=== PATIENT | male | born 1985 | race Two or more races ===

== ENCOUNTER 2017-03-27 06:48 | Emergency (ER) | payer OTHER ==
[2017-03-27 07:23] VITALS: BP 141/88; PULSE 62; TEMP 97.8; BMI 33.6
[2017-03-27] MEDS ORDERED: KETOROLAC TROMETHAMINE 60 MG/2 ML VIAL IM ONE (07:57)
--- NOTE | 2017-03-27 08:05 | PDOC ---
History of Present Illness - General Chief Complaint: Pain Stated Complaint: RT LEG INJURY Time Seen by Provider: 03/27/17 07:20 History Source: Patient Exam Limitations: No Limitations - History of Present Illness Initial Comments: 03/27/17 08:10 31-year-old male presents to the emergency room with complaints of right hernandez pain. Patient states a week ago was playing basketball when another individual' s knee burning collided into his hernandez causing him discomfort but states aching pain improved over time and then 2 days ago went back to spin class and yesterday walked hills for exercise. Pt states today pain was severe to the mid right hernandez. Patient denies radiation of pain, sensory changes distally, or previous injury to the affected area. Patient also denies calf pain. Timing/Duration: 1 week Severity: mild Associated Symptoms: reports: denies symptoms Past History - Travel Traveled outside of the country in the last 30 days: No Close contact w/someone who was outside of country & ill: No - Past Medical History Allergies/Adverse Reactions: Allergies Allergy/AdvReac Type Severity Reaction Status Date / Time No Known Allergies Allergy Verified 03/28/17 13:55 Home Medications: Ambulatory Orders NK [No Known Home Medication] 03/27/17 Asthma: Yes - Surgical History Abdominal Surgery: Yes Appendectomy: Yes - Suicide/Smoking/Psychosocial Hx Smoking History: Current every day smoker Number of Cigarettes Smoked Daily: 5 Information on smoking cessation initiated: No Hx Alcohol Use: No Drug/Substance Use Hx: No Patient Lives Alone: No Lives with/in: spouse/SO Review of Systems - Review of Systems Able to Perform ROS?: Yes Constitutional: No: Symptoms Reported HEENTM: No: Symptoms Reported Respiratory: No: Symptoms reported Cardiac (ROS): No: Symptoms Reported ABD/GI: No: Symptoms Reported : No: Symptoms Reported Musculoskeletal: Yes: Other (middle of right hernandez) Integumentary: No: Symptoms Reported Neurological: No: Symptoms reported Hematologic/Lymphatic: No: Symptoms Reported *Physical Exam - Vital Signs Last Vital Signs Temp Pulse Resp BP Pulse Ox 97.8 F 62 18 141/88 99 03/27/17 07:15 03/27/17 07:15 03/27/17 07:15 03/27/17 07:15 03/27/17 07:15 - Physical Exam General Appearance: Yes: Nourished, Appropriately Dressed. No: Apparent Distress Vascular Pulses: Dorsalis-Pedis (R): 2+ Extremity: positive: Normal Capillary Refill, Normal Inspection, Normal Range of Motion, Tender (over the anterior aspect of right mid tibia. No deformity, no increased warmth or discoloration noted). negative: Pedal Edema, Calf Tenderness Integumentary: positive: Normal Color, Warm, Moist Neurologic: positive: Motor Strength 5/5 (ambulatory with limp) ED Treatment Course - RADIOLOGY Radiology Studies Ordered: Category Date Time Status LEG TIB/FIB-RIGHT [RAD] Stat Radiology 03/27/17 07:23 Completed Medical Decision Making - Medical Decision Making 03/27/17 08:25 Patient with injury to his right lower leg 1 week ago but was performing strenuous activities for the past 2 days now with complaints of discomfort again. Patient on exam had anterior mid tibia discomfort but no acute findings other than discomfort. Patient was ordered for an x-ray to rule out fracture or bony abnormality. X-ray negative for acute findings. Patient ordered for 1 dose of Toradol IM. Patient discharged home with supportive care structures. *DC/Admit/Observation/Transfer Diagnosis at time of Disposition: Contusion of right leg Qualifiers: Encounter type: initial encounter Qualified Code(s): S80.11XA - Contusion of right lower leg, initial encounter - Discharge Dispostion Disposition: HOME Condition at time of disposition: Good - Referrals Referrals: Elmer Barragan MD [Primary Care Provider] - - Patient Instructions Printed Discharge Instructions: DI for Contusion Additional Instructions: Please apply heat to the affected area and gently massage to reduce the contusion. May take Motrin for discomfort. Avoid movements that triggered discomfort. If symptoms worsen please call to the emergency room. otherwise follow-up with your primary care physician.
[2017-03-27] MEDS ORDERED: KETOROLAC TROMETHAMINE 60 MG/2 ML VIAL ONE (08:11)
== END 2017-03-27 08:30 | disposition home or self-care (01) ==
LOC: JER 06:48
PROC: 3E0233Z Introduction of Anti-inflammatory into Muscle, Percutaneous Approach (ICD-10-PCS; principal; 2017-03-27)
DX: S80.11XA Contusion of right lower leg, initial encounter (principal); W50.0XXA Accidental hit or strike by another person, initial encounter; Y93.67 Activity, basketball; Y92.310 Basketball court as the place of occurrence of the external cause; Y99.8 Other external cause status
CPT/HCPCS: 73590-TC-RT; 96372; 99282-25

== ENCOUNTER 2017-03-28 13:43 | Inpatient (IN) | payer OTHER ==
[2017-03-28 13:55] VITALS: BMI 33.6
[2017-03-28] MEDS ORDERED: KETOROLAC TROMETHAMINE 30 MG/1 ML VIAL IVPUSH ONE (15:14)
[2017-03-28] MEDS ORDERED: KETOROLAC TROMETHAMINE 60 MG/2 ML VIAL ONE (15:18)
[2017-03-28] MEDS ORDERED: SODIUM CHLORIDE 1,000 ML IV STA (15:50)
[2017-03-28 15:53] LABS: BASOPHIL 0.3 % (0-2.0); EOSINOPHIL 0.4 % (0-4.5); MCH 28.6 pg (25.7-33.7); MCHC 33.9 g/dl (32.0-35.9); MEAN CELL VOLUME 84.3 fl (80-96); MEAN PLT VOLUME 9.5 fl (7.5-11.1); NEUTROPHILS 83.7 % (42.8-82.8); PLATELET COUNT 221 K/MM3 (134-434); RDW 13.5 % (11.9-15.9); WHITE BLOOD COUNT 17.8 K/mm3 (4.0-10.0)
--- NOTE | 2017-03-28 16:02 | PDOC ---
History of Present Illness <Michael Phelan - Last Filed: 03/28/17 17:28> - History of Present Illness Initial Comments: 03/28/17 15:59 "The patient is a 31 year old male, with a significant past medical history of asthma, who presents to the emergency department complaining of right hernandez pain , swelling and erythema x 1 day. The patient states he was playing basketball 1 week ago, when another individuals knee bumped into his right hernandez. Patient states he was down for 30 minutes in pain, but was able to get up afterwards and ambulate. Patient states his pain initially improved. However, 3 days ago he reports doing a lot of walking, estimating being on his feet for 12 hours. Since then patient reports increased pain to the right hernandez. Pt presented to the ED yesterdayand had an XR done which revealed no fracture. Since then patient reports he has been taking Motrin for the pain with minimum relief. He reports that since yesterday, his hernandez has become redder and more painful. Patient describes his hernandez pain as a hot needle stabbing his hernandez. He reports difficulty ambulating secondary to pain, and states he has been using crutches. Denies any chest pain, shortness of breath, diaphoresis, or palpitations. He denies any fever, chills, headache, or dizziness. He denies any nausea or vomiting. He denies any dysuria, hematuria, frequency, or urgency. He denies any recent travel. Allergies: NKDA Past Surgical History: None reported Social History: Non smoker. No ETOH or recreational drug use. " <Christophe Pfeiffer - Last Filed: 03/28/17 17:47> - General Chief Complaint: Redness To Affected Area Stated Complaint: REVISIT Time Seen by Provider: 03/28/17 14:26 Past History <Michael Phelan - Last Filed: 03/28/17 17:28> - Past Medical History Asthma: Yes - Surgical History Abdominal Surgery: Yes Appendectomy: Yes - Suicide/Smoking/Psychosocial Hx Smoking History: Current every day smoker Number of Cigarettes Smoked Daily: 7 Information on smoking cessation initiated: No Hx Alcohol Use: No Drug/Substance Use Hx: No Substance Use Type: None <Christophe Pfeiffer - Last Filed: 03/28/17 17:47> - Past Medical History Allergies/Adverse Reactions: Allergies Allergy/AdvReac Type Severity Reaction Status Date / Time No Known Allergies Allergy Verified 03/28/17 13:55 Home Medications: Ambulatory Orders NK [No Known Home Medication] 03/27/17 Review of Systems - Review of Systems Comments:: 03/28/17 16:01 "GENERAL/CONSTITUTIONAL: No fever or chills. No weakness. HEAD, EYES, EARS, NOSE AND THROAT: No change in vision. No ear pain or discharge. No sore throat. CARDIOVASCULAR: No chest pain or shortness of breath. RESPIRATORY: No cough, wheezing, or hemoptysis. GASTROINTESTINAL: No nausea, vomiting, diarrhea or constipation. GENITOURINARY: No dysuria, frequency, or change in urination. MUSCULOSKELETAL: Yes right foot/ankle swelling, Yes right hernandez pain, swelling, and erythema. He denies any neck or back pain. SKIN: Yes right hernandez erythema and swelling. NEUROLOGIC: No headache, vertigo, loss of consciousness, or change in strength/ sensation. ENDOCRINE: No increased thirst. No abnormal weight change. HEMATOLOGIC/LYMPHATIC: No anemia, easy bleeding, or history of blood clots. ALLERGIC/IMMUNOLOGIC: No hives." <Christophe Pfeiffer - Last Filed: 03/28/17 17:47> *Physical Exam - Vital Signs Last Vital Signs Temp Pulse Resp BP Pulse Ox 98.3 F 87 20 138/68 98 03/28/17 13:49 03/28/17 13:49 03/28/17 13:49 03/28/17 13:49 03/28/17 13:49 <Phelan,Giomilsy - Last Filed: 03/28/17 17:28> - Vital Signs Last Vital Signs Temp Pulse Resp BP Pulse Ox 98.3 F 87 20 138/68 98 03/28/17 13:49 03/28/17 13:49 03/28/17 13:49 03/28/17 13:49 03/28/17 13:49 - Physical Exam Comments: 03/28/17 16:02 "GENERAL: Awake, alert, and fully oriented, in no acute distress HEAD: No signs of trauma EYES: PERRLA, EOMI, sclera anicteric, conjunctiva clear ENT: Auricles normal inspection, hearing grossly normal, nares patent, oropharynx clear without exudates. Moist mucosa NECK: Nontender, no stepoffs, Normal ROM, supple, no lymphadenopathy, JVD, or masses LUNGS: Breath sounds equal, clear to auscultation bilaterally. No wheezes, and no crackles HEART: Regular rate and rhythm, normal S1 and S2, no murmurs, rubs or gallops ABDOMEN: Soft, nontender, normoactive bowel sounds. No guarding, no rebound. No masses EXTREMITIES: R hernandez with erythema extending from ankle to knee, tender to palpation anterior lower leg, compartments soft, no ulcers/abrasions, distal pulses intact, sensation intact, mild R ankle effusion with no tenderness, normal range of motion NEUROLOGICAL: Cranial nerves II through XII intact. 5/5 strength and sensation in all extremities, Normal speech, normal gait SKIN: Warm, Dry, normal turgor, no rashes or lesions noted. " <Christophe Pfeiffer - Last Filed: 03/28/17 17:47> ED Treatment Course - LABORATORY CBC & Chemistry Diagram: 03/28/17 15:30 03/28/17 15:30 - ADDITIONAL ORDERS Additional order review: Laboratory Results 03/28/17 03/28/17 03/28/17 17:00 15:30 15:30 Sodium 139 Potassium 4.2 Chloride 105 Carbon Dioxide 28 Anion Gap 6 L BUN 20 H Creatinine 1.0 Creat Clearance w eGFR > 60 Random Glucose 99 Calcium 8.4 L Total Bilirubin 1.1 H AST 10 L ALT 24 Alkaline Phosphatase 67 Creatine Kinase 123 Cancelled C-Reactive Protein 14.6 H Total Protein 7.1 Albumin 3.8 Urine Color Carolann Urine Appearance Clear Urine pH 6.0 Urine Protein 1+ H Urine Glucose (UA) Negative Urine Ketones Negative Urine Blood Negative Urine Nitrite Negative Urine Bilirubin Negative Urine Urobilinogen 4.0 e.u/dl 03/28/17 15:30 RBC 5.31 MCV 84.3 MCHC 33.9 RDW 13.5 MPV 9.5 Neutrophils % 83.7 H Lymphocytes % 8.4 Monocytes % 7.2 Eosinophils % 0.4 Basophils % 0.3 - RADIOLOGY Radiograph Interpretation: 03/28/17 17:20 EXAM: Right lower extremity venous ultrasound. INTERPRETED BY: Dr. Ellis REVIEWED BY: Dr. Pfeiffer IMPRESSION: There is no sonographic evidence of deep vein thrombosis. The greater saphenous vein appears patent. The smaller superficial veins demonstrate no obvious thrombosis. If there is clinical concern for possible isolated deep calf vein thrombosis or if there is a clinical diagnosis of uncomplicated superficial thrombophlebitis, then correlation with follow up sonography is suggested in approximately 3-7 days. Within the upper and middle thirds of the right calf medially note is made of a nonspecific complex approximately 10 x 1.7 cm fluid collection with internal debris. There is no associated increased vascularity on Doppler imaging. Impression: No DVT is identified involving the right leg. Please see above. A nonspecific complex 10 x 1.7 cm fluid collection is noted within the upper and middle thirds right calf medial soft tissues medially - ? hematoma, dissecting popliteal cyst with internal debris , hemorrhagic dissecting popliteal cyst, versus partially treated abscess and less likely representing a neoplastic lesion. Correlate clinically and with close follow-up imaging. - Medications Given in the ED: ED Medications Discontinued Medications Generic Name Dose Route Start Last Admin Trade Name Freq PRN Reason Stop Dose Admin Sodium Chloride 1,000 mls @ 1,000 mls/hr 03/28/17 15:50 03/28/17 15:19 Normal Saline - IV 03/28/17 16:49 1,000 mls/hr ASDIR STA Administration Ketorolac Tromethamine 15 mg 03/28/17 15:14 03/28/17 15:19 Toradol Injection - IVPUSH 03/28/17 15:15 15 mg ONCE ONE Administration <Michael Phelan - Last Filed: 03/28/17 17:28> - LABORATORY CBC & Chemistry Diagram: 03/28/17 15:30 03/28/17 15:30 - ADDITIONAL ORDERS Additional order review: Laboratory Results 03/28/17 15:30 Creatine Kinase Cancelled 03/28/17 15:30 RBC 5.31 MCV 84.3 MCHC 33.9 RDW 13.5 MPV 9.5 Neutrophils % 83.7 H Lymphocytes % 8.4 Monocytes % 7.2 Eosinophils % 0.4 Basophils % 0.3 - RADIOLOGY Radiology Studies Ordered: Category Date Time Status DUPLEX VASCUL US-1 LEG [US] Stat Ultrasound 03/28/17 15:16 Ordered <Christophe Pfeiffer - Last Filed: 03/28/17 17:47> Medical Decision Making - Medical Decision Making 03/28/17 17:25 First call placed to Dr. Longoria at 17:23. Awaiting call back. Case discussed with Dr. Longoria at 17:27. <Michael Phelan - Last Filed: 03/28/17 17:28> - Medical Decision Making 03/28/17 16:08 31 M with R hernandez redness, swelling, pain. Exam consistent with cellulitis. However, given recent strenuous activity, will r/o rhabdomyolosis as well. Compartments are soft on exam, with normal neurovascular exam. Pt with no signs of systemic infection. - Labs - IVF - US to r/o DVT 03/28/17 17:39 Labs notable for elevated WBC and CRP. Pt given bactrim and keflex for cellulitis. US of RLE negative for DVT but shows fluid collection - possible hematoma vs dissecting rodríguez's cyst vs abscess. I spoke with Dr. Longoria, orthopedist gauge controller, who reviewed case and studies with me. Given pt's rapid progression of erythema and elevated WBC, he recommends admission to hospital for IV abx and ortho evaluation in AM. Pt started on IV vancomycin. Area of erythema on RLE demarcated using skin marker. Will admit to hospitalist for IV abx and re-evaluation. 03/28/17 17:46 Case discussed in detail with admitting physician including history, physical exam and ancillary studies. Admitting physician has assumed care for the patient and will follow all pending diagnostics and complete the evaluation and treatment. <Christophe Pfeiffer - Last Filed: 03/28/17 17:47> *DC/Admit/Observation/Transfer - Attestations Scribe Attestion: 03/28/17 17:25 Documentation prepared by Michael Phelan, acting as medical office rep for Christophe Pfeiffer MD. <Michael Phelan - Last Filed: 03/28/17 17:28> - Discharge Dispostion Admit: Yes - Attestations Physician Attestion: 03/28/17 17:47 I, Dr. Christophe Pfeiffer MD, attest that this document has been prepared under my direction and personally reviewed by me in its entirety. I further attest, that it accurately reflects all work, treatment, procedures and medical decision -making performed by me. <Christophe Pfeiffer - Last Filed: 03/28/17 17:47> Diagnosis at time of Disposition: Cellulitis
[2017-03-28] MEDS ORDERED: SULFAMETHOXAZOLE/TRIMETHOPRIM 800MG/160MG D.S. TABLET PO ONE (16:12)
[2017-03-28 16:17] LABS: ALBUMIN 3.8 g/dl (3.4-5.0); ALK PHOS 67 U/L (45-117); ANION GAP 6 (8-16); BILIRUBIN,TOTAL 1.1 mg/dL (0.2-1.0); C-REACTIVE PROTEIN 14.6 MG/DL (0.00-0.3); CALCIUM 8.4 mg/dL (8.5-10.1); CO2 28 mmol/L (21-32); CPK 123 IU/L (39-308); GLUCOSE,RANDOM 99 mg/dL (74-106); SGOT/AST 10 U/L (15-37); SGPT/ALT 24 U/L (12-78); TOT PROT 7.1 g/dl (6.4-8.2)
[2017-03-28] MEDS ORDERED: CEPHALEXIN MONOHYDRATE 250 MG CAPSULE (FP) PO ONE (16:17)
[2017-03-28] MEDS ORDERED: SULFAMETHOXAZOLE/TRIMETHOPRIM 800MG/160MG D.S. TABLET ONE (16:26)
[2017-03-28] MEDS ORDERED: CEPHALEXIN MONOHYDRATE 250 MG CAPSULE (FP) ONE (16:27)
[2017-03-28 16:53] LABS: URINE APPEARANCE CLEAR; URINE BILIRUBIN NEGATIVE (NEGATIVE); URINE BLOOD NEGATIVE (NEGATIVE); URINE COLOR AMBER; URINE GLUCOSE (UA) NEGATIVE (NEGATIVE); URINE KETONE NEGATIVE (NEGATIVE); URINE NITRITE NEGATIVE (NEGATIVE); URINE UROBILINOGEN 4.0 E.U/dl mg/dL (0.2-1.0)
[2017-03-28 17:08] LABS: URINE PROTEIN 1+ (NEGATIVE)
[2017-03-28] MEDS ORDERED: VANCOMYCIN 1,250 MG in DEXTROSE 5%-WATER - 250 ML IVPB ONE (17:37)
[2017-03-28 17:44] LABS: URINE MUCUS MANY; URINE RBC 10 /hpf (0-3); URINE WBC 1 /hpf (3-5)
--- NOTE | 2017-03-28 17:59 | HP ---
CHIEF COMPLAINT: "My right leg is swollen." PCP: HISTORY OF PRESENT ILLNESS: This is a 31yo man with PMH asthma who presents with 9 days of RLE erythema and feeling "hot." He states he was playing basketball when he was struck in the right pre-tibial area. He had some pain and believed it was a hematoma. He was evaluated in this ED and had negative xrays. He was discharged. Pain has slowly progressed until this AM where he has reported increased pain with dependant positioning. He denies fevers, chills, ankle or knee pain. ER course was notable for: (1) WBC- 17.8 (2) (-) doppler Recent Travel: denies PAST MEDICAL HISTORY: see HPI PAST SURGICAL HISTORY: see HPI Social History: Smokin cigarettes daily Alcohol: denies Drugs: denies Family History: Allergies No Known Allergies Allergy (Verified 03/28/17 13:55) HOME MEDICATIONS: Home Medications Medication Instructions Recorded NK [No Known Home Medication] 03/27/17 REVIEW OF SYSTEMS CONSTITUTIONAL: Absent: fever, chills, diaphoresis, generalized weakness, malaise, loss of appetite, weight change HEENT: Absent: rhinorrhea, nasal congestion, throat pain, throat swelling, difficulty swallowing, mouth swelling, ear pain, eye pain, visual changes CARDIOVASCULAR: Absent: chest pain, syncope, palpitations, irregular heart rate, lightheadedness , peripheral edema RESPIRATORY: Absent: cough, shortness of breath, dyspnea with exertion, orthopnea, wheezing, stridor, hemoptysis GASTROINTESTINAL: Absent: abdominal pain, abdominal distension, nausea, vomiting, diarrhea, constipation, melena, hematochezia GENITOURINARY: Absent: dysuria, frequency, urgency, hesitancy, hematuria, flank pain, genital pain MUSCULOSKELETAL: Absent: myalgia, arthralgia, joint swelling, back pain, neck pain SKIN: Present- RLE erythema and swelling Absent: rash, itching, pallor HEMATOLOGIC/IMMUNOLOGIC: Absent: easy bleeding, easy bruising, lymphadenopathy, frequent infections ENDOCRINE: Absent: unexplained weight gain, unexplained weight loss, heat intolerance, cold intolerance NEUROLOGIC: Absent: headache, focal weakness or paresthesias, dizziness, unsteady gait, seizure, mental status changes, bladder or bowel incontinence PSYCHIATRIC: Absent: anxiety, depression, suicidal or homicidal ideation, hallucinations. PHYSICAL EXAMINATION Vital Signs - 24 hr 03/28/17 13:49 Temperature 98.3 F Pulse Rate 87 Respiratory 20 Rate Blood Pressure 138/68 O2 Sat by Pulse 98 Oximetry (%) GENERAL: Awake, alert, and fully oriented, in no acute distress. HEAD: Normal with no signs of trauma. EYES: Pupils equal, round and reactive to light, extraocular movements intact, sclera anicteric, conjunctiva clear. No lid lag. EARS, NOSE, THROAT: Ears normal, nares patent, oropharynx clear without exudates. Moist mucous membranes. NECK: Normal range of motion, supple without lymphadenopathy, JVD, or masses. LUNGS: Breath sounds equal, clear to auscultation bilaterally. No wheezes, and no crackles. No accessory muscle use. HEART: Regular rate and rhythm, normal S1 and S2 without murmur, rub or gallop. ABDOMEN: Soft, nontender, not distended, normoactive bowel sounds, no guarding, no rebound, no masses. No hepatomegaly or splenomegaly. MUSCULOSKELETAL: Normal range of motion at all joints. No bony deformities or tenderness. No CVA tenderness. UPPER EXTREMITIES: 2+ pulses, warm, well-perfused. No cyanosis. No clubbing. No peripheral edema. LOWER EXTREMITIES: 2+ pulses, warm, well-perfused. No calf tenderness. No peripheral edema. Circumferential erythema to RLE. Warm to touch. NEUROLOGICAL: Cranial nerves II-XII intact. Normal speech. Normal gait. PSYCHIATRIC: Cooperative. Good eye contact. Appropriate mood and affect. SKIN: Warm, dry, normal turgor, no rashes or lesions noted, normal capillary refill. Laboratory Results - last 24 hr 03/28/17 03/28/17 03/28/17 15:30 15:30 15:30 WBC 17.8 H RBC 5.31 Hgb 15.2 Hct 44.7 MCV 84.3 MCH 28.6 MCHC 33.9 RDW 13.5 Plt Count 221 MPV 9.5 Neutrophils % 83.7 H Lymphocytes % 8.4 Monocytes % 7.2 Eosinophils % 0.4 Basophils % 0.3 Sodium 139 Potassium 4.2 Chloride 105 Carbon Dioxide 28 Anion Gap 6 L BUN 20 H Creatinine 1.0 Creat Clearance w eGFR > 60 Random Glucose 99 Calcium 8.4 L Total Bilirubin 1.1 H AST 10 L ALT 24 Alkaline Phosphatase 67 Creatine Kinase Cancelled 123 C-Reactive Protein 14.6 H Total Protein 7.1 Albumin 3.8 Urine Color Urine Appearance Urine pH Urine Protein Urine Glucose (UA) Urine Ketones Urine Blood Urine Nitrite Urine Bilirubin Urine Urobilinogen Urine RBC Urine WBC Ur Epithelial Cells Urine Mucus 03/28/17 17:00 WBC RBC Hgb Hct MCV MCH MCHC RDW Plt Count MPV Neutrophils % Lymphocytes % Monocytes % Eosinophils % Basophils % Sodium Potassium Chloride Carbon Dioxide Anion Gap BUN Creatinine Creat Clearance w eGFR Random Glucose Calcium Total Bilirubin AST ALT Alkaline Phosphatase Creatine Kinase C-Reactive Protein Total Protein Albumin Urine Color Carolann Urine Appearance Clear Urine pH 6.0 Urine Protein 1+ H Urine Glucose (UA) Negative Urine Ketones Negative Urine Blood Negative Urine Nitrite Negative Urine Bilirubin Negative Urine Urobilinogen 4.0 e.u/dl Urine RBC 10 Urine WBC 1 Ur Epithelial Cells Rare Urine Mucus Many ASSESSMENT/PLAN: A: 31yo man with cellulitis of RLE. P: Cellulitis - Unasyn 3g IV - site marked by ED MD - trend WBC - trend fever curve - Ortho consult pending F/E/N - regular diet - replete prn PPX - OOB Dispo- requires observation of acute medical condition Visit type - Emergency Visit Emergency Visit: Yes Care time: The patient presented to the Emergency Department on the above date and was hospitalized for further evaluation of their emergent condition. - New Patient This patient is new to me today: Yes Date on this admission: 03/28/17 - Critical Care Critical Care patient: No
[2017-03-28] MEDS ORDERED: AMPICILLIN NA/SULBACTAM NA 3 GM in SODIUM CHLORIDE 100 ML IVPB ONE (18:33)
[2017-03-28] MEDS ORDERED: VANCOMYCIN 1 GRAM (PRE-DOCKED) 250 ML IVPB ONE (18:59)
[2017-03-28 19:32] LABS: ERYTHROCYTE SEDIMENTATION RATE 10 mm/hr (0-10)
[2017-03-28 19:50] LABS: URINE LEUK ESTERASE Negative (NEGATIVE)
[2017-03-29] MEDS ORDERED: IBUPROFEN 600 MG TABLET (FP) PO ONE (02:43)
[2017-03-29 08:52] LABS: BASOPHIL 0.2 % (0-2.0); EOSINOPHIL 0.8 % (0-4.5); MCH 28.2 pg (25.7-33.7); MCHC 33.9 g/dl (32.0-35.9); MEAN CELL VOLUME 83.2 fl (80-96); MEAN PLT VOLUME 9.4 fl (7.5-11.1); NEUTROPHILS 78.8 % (42.8-82.8); PLATELET COUNT 198 K/MM3 (134-434); RDW 13.5 % (11.9-15.9); WHITE BLOOD COUNT 16.8 K/mm3 (4.0-10.0)
[2017-03-29 09:04] LABS: ANION GAP 5 (8-16); CALCIUM 8.3 mg/dL (8.5-10.1); CO2 26 mmol/L (21-32); GLUCOSE,RANDOM 87 mg/dL (74-106)
--- NOTE | 2017-03-29 12:29 | PN ---
Physical Exam: SUBJECTIVE: Patient seen and examined OBJECTIVE: RLE with increased swelling, pain: Vanco x 1 now, awaiting ID recommendations. CT scan of RLE w/o contrast now Vascular study shows 10 cm x 1.7 cm fluid collection RLE Vital Signs Period Temp Pulse Resp BP Sys/Shelton Pulse Ox Last 24 Hr 98 F-99.5 F 79-87 17-20 116-148/55-81 98-98 GENERAL: Awake, alert, and fully oriented, in no acute distress. HEAD: Normal with no signs of trauma. EYES: Pupils equal, round and reactive to light, extraocular movements intact, sclera anicteric, conjunctiva clear. No lid lag. EARS, NOSE, THROAT: Ears normal, nares patent, oropharynx clear without exudates. Moist mucous membranes. NECK: Normal range of motion, supple without lymphadenopathy, JVD, or masses. LUNGS: Breath sounds equal, clear to auscultation bilaterally. No wheezes, and no crackles. No accessory muscle use. HEART: Regular rate and rhythm, normal S1 and S2 without murmur, rub or gallop. ABDOMEN: Soft, nontender, not distended, normoactive bowel sounds, no guarding, no rebound, no masses. No hepatomegaly or splenomegaly. MUSCULOSKELETAL: Normal range of motion at all joints. No bony deformities or tenderness. No CVA tenderness. UPPER EXTREMITIES: 2+ pulses, warm, well-perfused. No cyanosis. No clubbing. No peripheral edema. LOWER EXTREMITIES: +erythema to RLE. Warm to touch, +tenderness and pain NEUROLOGICAL: Cranial nerves II-XII intact. Normal speech. Normal gait. PSYCHIATRIC: Cooperative. Good eye contact. Appropriate mood and affect. SKIN: +erythema to RLE. Warm to touch, +tenderness and pain Laboratory Results - last 24 hr 03/29/17 03/29/17 07:45 07:45 WBC 16.8 H RBC 4.94 Hgb 13.9 Hct 41.1 MCV 83.2 MCH 28.2 MCHC 33.9 RDW 13.5 Plt Count 198 MPV 9.4 Neutrophils % 78.8 Lymphocytes % 11.5 D Monocytes % 8.7 Eosinophils % 0.8 D Basophils % 0.2 Sodium 138 Potassium 4.0 Chloride 107 Carbon Dioxide 26 Anion Gap 5 L BUN 12 D Creatinine 1.0 Random Glucose 87 Calcium 8.3 L Active Medications Generic Name Dose Route Start Last Admin Trade Name Damian PRN Reason Stop Dose Admin Acetaminophen 650 mg 03/28/17 18:32 Tylenol - PO Q4H PRN FEVER OR PAIN Vancomycin HCl 1,250 mg/ 250 mls @ 250 mls/hr 03/29/17 12:08 Dextrose IVPB 03/29/17 13:07 ONCE ONE Protocol Ibuprofen 600 mg 03/29/17 12:27 Motrin - PO Q8H PRN PAIN ASSESSMENT/PLAN: Patient is a 31 year old male with a past medical history of asthma. He presents to the ED on 03/28/2017 with right lower ext redness, pain and cellulitis. he states his RLE feels hot when he was playing basketball when he was struck in the right pre-tibial area. He was evaluated in this ED on 03/22 and had negative xrays. He was discharged home. He returns yesterday with increased pain and worsening redness. He denies fevers, chills, ankle or knee pain. Imaging: CT of RLE w/o contrast 03/29/2017: Non specific 12 cm x 3 cm x 1.3 cm fluid collection seen in ventral medial border of the tibial, infection vs. non infection Vascular study: non specific complex 10x1.7cm fluid collection, negative for DVT Tibia/Fiula xray 03/27/2017, no evidence of acute abnormality, no evidence of radiopaque foreign body soft tissue ID: Right Lower Ext cellulitis, acute CT of RLE shows non specific 12cm x 3cm x 1.3cm fluid collection ?infection On Vancomycin and Zosyn as per ID Lactic acid pending Site marked by ED and redness now outside border WBC with slight improvement, but remains elevated Monitor fever, labs Ortho consulted ID following Pulmonary: Asthma, chronic Not in exacerbation, monitor F.E.N. Fluids: tolerating PO Electrolytes: monitor Nutrition: regular diet Prophylaxis: DVT: heparin GI: Protonix Disposition: Full code. Visit type - Emergency Visit Emergency Visit: Yes ED Registration Date: 03/28/17 Care time: The patient presented to the Emergency Department on the above date and was hospitalized for further evaluation of their emergent condition. - New Patient This patient is new to me today: Yes Date on this admission: 03/29/17 - Critical Care Critical Care patient: No - Discharge Referral Referred to [facility] No
[2017-03-29] MEDS ORDERED: VANCOMYCIN 1,250 MG in DEXTROSE 5%-WATER - 250 ML IVPB ONE (13:00)
--- NOTE | 2017-03-29 15:49 | CON.ID ---
Consult Consult Specialty:: infectious diseases Reason for Consultation:: swelling cellulitits of the rt leg - History of Present Illness Chief Complaint: pain and swelling of the rt leg History of Present Illness: 31yo man with PMH asthma who presents with 9 days of RLE erythema " He states he was playing basketball when he was struck in the right pre-tibial area. He had some pain and believed it was a hematoma. He was evaluated in this ED and had negative xrays. He was discharged. Pain has slowly progressed until this AM where he has reported increased pain with dependant positioning. He denies fevers, chills, ankle or knee pain. patient now also has started developing blister at the original injury site also patient is c/o fever with chills which he had which forced him to come to the hospital - History Source History Provided By: Patient Limitations to Obtaining History: No Limitations - Alcohol/Substance Use Hx Alcohol Use: No - Smoking History Smoking history: Current every day smoker Aproximately how many cigarettes per day: 7 Home Medications - Allergies Allergies/Adverse Reactions: Allergies Allergy/AdvReac Type Severity Reaction Status Date / Time No Known Allergies Allergy Verified 03/28/17 13:55 - Home Medications Home Medications: Ambulatory Orders NK [No Known Home Medication] 03/27/17 Review of Systems - Review of Systems Constitutional: reports: Chills, Fever Eyes: reports: No Symptoms HENT: reports: No Symptoms Neck: reports: No Symptoms Cardiovascular: reports: No Symptoms Respiratory: reports: No Symptoms Gastrointestinal: reports: No Symptoms Genitourinary: reports: No Symptoms Musculoskeletal: reports: Muscle Pain, Other Integumentary: reports: Erythema, Other Neurological: reports: No Symptoms Endocrine: reports: No Symptoms Hematology/Lymphatic: reports: No Symptoms Psychiatric: reports: No Symptoms Physical Exam Vital Signs: Vital Signs Temperature 97.8 F 03/29/17 14:36 Pulse Rate 83 03/29/17 14:36 Respiratory Rate 18 03/29/17 14:36 Blood Pressure 141/83 03/29/17 14:36 O2 Sat by Pulse Oximetry (%) 98 03/28/17 22:30 Constitutional: Yes: Well Nourished, Calm, Mild Distress Eyes: Yes: Conjunctiva Clear HENT: Yes: Atraumatic Neck: Yes: Supple, Trachea Midline Cardiovascular: Yes: Regular Rate and Rhythm Respiratory: Yes: Regular, CTA Bilaterally Gastrointestinal: Yes: Normal Bowel Sounds Musculoskeletal: Yes: WNL Extremities: Yes: Erythema Neurological: Yes: Alert, Oriented Psychiatric: Yes: Alert, Oriented Labs: CBC, BMP 03/29/17 07:45 03/29/17 07:45 Imaging - Results X-ray: Report Reviewed, Image Reviewed Assessment/Plan Right Lower Ext cellulitis, acute swelling plan will start him on abx ct scan of the leg once we have everything in place will decide on how we proceed
--- NOTE | 2017-03-29 16:34 | PN ---
Progress Note (short form) - Note Progress Note: Pt was seen and examined. In short he was playing basketball 5 days ago, was severely hit in the right anterior medial tibial area, was able to continue playing. No bleeding or open aspect. About 3 days ago he started developing an area of redness, swelling, and increasing pain in the area of contact. He was admitted with a diagnosis of cellulitis. Is currently on IV Vanco and Ampicillin. AVSS WBC=16.8, high but decreasing Xrays- Nl for any acute jeni pathology CT Scan - shows a fluid collection in the area of the previous trauma, and superficial soft tissue edema PE RLE is grossly NVI Good ROM at the right knee, ankle, foot, toes Large area of cellulitis over the anterior aspect of the tibia, extends both medially and laterally. + very tender + hot Small area of superficial fluid collection, about [id number] at central aspect Imp Post traumatic cellulitis, possibly infected hematoma. Rec No surgery indicated at this time. Elevate, WBAT Con't IV antibiotics Will reassess tomorrow.
[2017-03-29] MEDS: IBUPROFEN 600 MG TABLET (FP) PO PRN (17:18)
[2017-03-29] MEDS: PIPERACILLIN/TAZOB 3.375 GM 50 ML IVPB SCH ×2 (18:03→22:02)
[2017-03-29] MEDS ORDERED: PT OWN MED DRAWER 7, Y5N ONE (21:25)
[2017-03-30] MEDS: ARTIFICIAL TEARS (POLYVINYL ALCOHOL 1.4%) OPTH DROPS OU PRN (01:18)
[2017-03-30] MEDS ORDERED: PT OWN MED DRAWER 7, Y5N ONE (01:21)
[2017-03-30] MEDS: PIPERACILLIN/TAZOB 3.375 GM 50 ML IVPB SCH ×4 (02:58→21:46)
[2017-03-30] MEDS: IBUPROFEN 600 MG TABLET (FP) PO PRN (04:13)
[2017-03-30 06:54] LABS: BASOPHIL 0.2 % (0-2.0); MCH 27.9 pg (25.7-33.7); MCHC 33.5 g/dl (32.0-35.9); MEAN CELL VOLUME 83.1 fl (80-96); MEAN PLT VOLUME 9.3 fl (7.5-11.1); NEUTROPHILS 87.2 % (42.8-82.8); PLATELET COUNT 204 K/MM3 (134-434); RDW 13.2 % (11.9-15.9)
[2017-03-30 07:09] LABS: ALBUMIN 3.2 g/dl (3.4-5.0); ALK PHOS 62 U/L (45-117); ANION GAP 8 (8-16); BILIRUBIN,TOTAL 0.9 mg/dL (0.2-1.0); CALCIUM 7.9 mg/dL (8.5-10.1); CO2 25 mmol/L (21-32); CREATININE 1.1 mg/dL (0.7-1.3); GLUCOSE,RANDOM 95 mg/dL (74-106); SGOT/AST 11 U/L (15-37); SGPT/ALT 19 U/L (12-78); TOT PROT 6.6 g/dl (6.4-8.2)
[2017-03-30] MEDS ORDERED: HEPARIN NA (PORCINE) 5,000 UNITS/ML 1ML VIAL SQ SCH (10:00)
--- NOTE | 2017-03-30 10:15 | PN ---
Progress Note (short form) - Note Progress Note: Ortho Pt seen and examined. RIght LE cellulitis- feeling better today Selected Entries 03/30/17 06:00 Temperature 97.8 F Pulse Rate 90 Respiratory 20 Rate Blood Pressure 133/74 Laboratory Tests 03/30/17 05:45 WBC 13.0 H Hgb 13.5 Hct 40.2 Plt Count 204 + erythema with some improvement distally but has slightly incr proximally, + fluid collection mid aspect tibia, decr swelling, good rom of knee, ankle and foot, nvi a/p ABx as per ID no surgical intervention at this time will continue to monitor strict elevation will follow d/w DR. Santiago
[2017-03-30] MEDS ORDERED: POLYETHYLENE GLYCOL 3350 119 GM BTL PO ONE (11:38)
[2017-03-30] MEDS: NYSTATIN 100000 UNIT/GM TOPICAL OINTMENT 15 GM TUBE TP SCH ×2 (13:22→21:46)
--- NOTE | 2017-03-30 14:50 | PN ---
Progress Note, Physician History of Present Illness: doing much better no issues swelling decreasing bleb intact - Current Medication List Current Medications: Active Medications Acetaminophen (Tylenol -) 650 mg PO Q4H PRN PRN Reason: FEVER OR PAIN Artificial Tears (Artificial Tears) 1 drop OU BID PRN PRN Reason: DRY EYES Last Admin: 03/30/17 01:18 Dose: 1 drop Piperacillin/Tazobactam/Dextrose (Zosyn 3.375gm Ivpb (Premix)) 50 mls @ 100 mls /hr IVPB Q6H-IV KAYLA PRN Reason: Protocol Last Admin: 03/30/17 09:34 Dose: 100 mls/hr Vancomycin HCl 1,250 mg/ (Dextrose) 250 mls @ 166.667 mls/hr IVPB DAILY@1700 KAYLA PRN Reason: Protocol Nystatin (Mycostatin Ointment -) 1 applic TP BID COUNTS INCLUDE 234 BEDS AT THE [facility] Last Admin: 03/30/17 13:22 Dose: 1 applic - Objective Vital Signs: Vital Signs Temperature 97.6 F 03/30/17 10:00 Pulse Rate 69 03/30/17 10:00 Respiratory Rate 20 03/30/17 10:00 Blood Pressure 124/76 03/30/17 10:00 O2 Sat by Pulse Oximetry (%) 98 03/30/17 04:00 Constitutional: Yes: No Distress, Calm Cardiovascular: Yes: Regular Rate and Rhythm Respiratory: Yes: Regular, CTA Bilaterally Gastrointestinal: Yes: Normal Bowel Sounds, Soft Musculoskeletal: Yes: Other Extremities: Yes: Erythema (improving), Other Neurological: Yes: Alert, Oriented Psychiatric: Yes: Alert, Oriented Assessment/Plan Right Lower Ext cellulitis, acute swelling plan continue abx ct scan seen ortho note noted rest as per primary
--- NOTE | 2017-03-30 14:53 | PN ---
Teaching Attending Note Name of Resident: Naresh James ATTENDING PHYSICIAN STATEMENT I saw and evaluated the patient. I reviewed the resident's note and discussed the case with the resident. I agree with the resident's findings and plan as documented. SUBJECTIVE: pain in R leg has improved . no fever but had chills. has no SOB or cp. reports trauma to his leg a week ago OBJECTIVE: NAD , AAOx3 CV: RRR Lungs : CTAB Ext: R leg with erythema, edema , and increased circumference. slight tenderness to palpation . blistering on medial aspect of the middle calf ( filled with serous fluid) . DP 1+ b/l . PT 1+ b/l . bruises around medial malleolus ASSESSMENT AND PLAN: 31 y/o lady with h/o Asthma, who presented with R leg pain and swelling after trauma , he was found to have a fluid collection in leg and cellulitis 1- Cellulitis with possible infected hematoma after trauma : leukocytosis is better and pt has no fever . Leg is improving but has blistering. No signs of compartment syndrome - cont zosyn and vanco - check vanco trough tomorrow at 4:30 pm - follow neuro vascular exam - follow blood cx - Dc ibuprofen and heparin sq due to the hematoma 2- ASthma , not active
--- NOTE | 2017-03-30 15:01 | PN ---
Progress Note (short form) - Note Progress Note: Vascular Surgery Pt seen and examined. CT reviewed with pt. Complains of right calf pain, when he tries to ambulate. Cellulitis is much improved as per ID . Agressive PT when ready. Pt with palpable pulses. No need for any vascular intervention. No need to drain collection, since it is sterile. Jasper Feng DO
--- NOTE | 2017-03-30 15:23 | PN ---
Physical Exam: SUBJECTIVE: Patient seen and examined. Still complains of RLE hernandez, calf pain. He says the pain improved and less swollen since yesterday but he is still unable to walk on it. he also complained of chills that occurred in the middle of the night. OBJECTIVE: GENERAL: The patient is awake, alert, and fully oriented, in no acute distress. HEAD: Normal with no signs of trauma. LUNGS: Breath sounds equal, clear to auscultation bilaterally, no wheezes, no crackles, no accessory muscle use. HEART: Regular rate and rhythm, S1, S2 without murmur, rub or gallop. ABDOMEN: Soft, nontender, nondistended, normoactive bowel sounds EXTREMITIES: Right leg erythematous, edematous, and warm, with increased circumference (based on previous demarcation). Blister in medial aspect of Right middle calf. Tender to palpation. 1+ PT, DP pulses B/L. Tinea pedis between toes in right foot. PSYCH: Normal mood, normal affect. Active Medications Generic Name Dose Route Start Last Admin Trade Name Freq PRN Reason Stop Dose Admin Acetaminophen 650 mg 03/28/17 18:32 Tylenol - PO Q4H PRN FEVER OR PAIN Artificial Tears 1 drop 03/30/17 01:10 03/30/17 01:18 Artificial Tears OU 1 drop BID PRN Administration DRY EYES Piperacillin/Tazobactam/Dextrose 50 mls @ 100 mls/hr 03/29/17 16:30 03/30/17 09 :34 Zosyn 3.375gm Ivpb (Premix) IVPB 100 mls/hr Q6H-IV KAYLA Administration Protocol Vancomycin HCl 1,250 mg/ 250 mls @ 166.667 mls/hr 03/30/17 17:00 Dextrose IVPB DAILY@1700 [facility] Protocol Nystatin 1 applic 03/30/17 11:45 03/30/17 13:22 Mycostatin Ointment - TP 1 applic BID [facility] Administration ASSESSMENT/PLAN: 31 yo M with PMHx of Asthma, presented to the ED after trauma to the right hernandez x 1 week and was found to have RLE cellulitis. #RLE Cellulitis with possible infected hematoma s/p trauma -WBC 13. (improved from 17.8 in ED). -blistering of hernandez -Cont IV ABx: Vancomycin and Zosyn (Day 2) -Vanc Trough tomorrow 4:30pm -FU Vascular reccs -Held ibuprofen and heparin due to hematoma -FU blood culture -FU ortho reccs #Tinea Pedis -Nystatin ointment #Constipation -Miralax #Asthma -currently not active #FEN: -Not on any fluids -Electolytes WNL -Regular diet #DVT PPX: -Not on Heparin because of Hematoma Visit type - Emergency Visit Emergency Visit: Yes ED Registration Date: 03/30/17 Care time: The patient presented to the Emergency Department on the above date and was hospitalized for further evaluation of their emergent condition. - New Patient This patient is new to me today: Yes Date on this admission: 03/30/17 - Critical Care Critical Care patient: No
[2017-03-30] MEDS: VANCOMYCIN 1,250 MG in DEXTROSE 5%-WATER - 250 ML IVPB SCH (17:03)
[2017-03-31] MEDS: PIPERACILLIN/TAZOB 3.375 GM 50 ML IVPB SCH ×4 (03:03→21:33)
[2017-03-31 08:48] LABS: MCH 28.3 pg (25.7-33.7); MCHC 33.6 g/dl (32.0-35.9); MEAN CELL VOLUME 84.3 fl (80-96); MEAN PLT VOLUME 9.3 fl (7.5-11.1); PLATELET COUNT 246 K/MM3 (134-434); RDW 13.1 % (11.9-15.9); WHITE BLOOD COUNT 9.1 K/mm3 (4.0-10.0)
[2017-03-31 09:00] LABS: ANION GAP 9 (8-16); CALCIUM 8.2 mg/dL (8.5-10.1); CO2 25 mmol/L (21-32); CREATININE 1.1 mg/dL (0.7-1.3); GLUCOSE,RANDOM 91 mg/dL (74-106)
--- NOTE | 2017-03-31 09:35 | PN ---
Physical Exam: SUBJECTIVE: Patient seen and examined. No acute events overnight. Says his right leg feels better than yesterday but still unable to put pressure on it. He also says he gets chills and night sweats after antibiotic administration. OBJECTIVE: Vital Signs Period Temp Pulse Resp BP Sys/S[place] Pulse Ox Last 24 Hr 97.7 F-98.8 F 70-85 17-20 129-148/70-87 GENERAL: The patient is awake, alert, and fully oriented, in no acute distress. HEAD: Normal with no signs of trauma. LUNGS: Breath sounds equal, clear to auscultation bilaterally, no wheezes, no crackles, no accessory muscle use. HEART: Regular rate and rhythm, S1, S2 without murmur, rub or gallop. ABDOMEN: Soft, nontender, nondistended, normoactive bowel sounds EXTREMITIES: Right leg erythematous (less expanded), edematous, and warm, with decreased circumference. 1-2 inch Blister in medial aspect of Right middle calf. Tender to palpation. 1+ PT, DP pulses B/L. Tinea pedis between toes in right foot. PSYCH: Normal mood, normal affect. Laboratory Results - last 24 hr 03/31/17 06:00 WBC 9.1 RBC 4.84 Hgb 13.7 Hct 40.9 MCV 84.3 MCH 28.3 MCHC 33.6 RDW 13.1 Plt Count 246 D MPV 9.3 Active Medications Generic Name Dose Route Start Last Admin Trade Name Freq PRN Reason Stop Dose Admin Acetaminophen 650 mg 03/28/17 18:32 Tylenol - PO Q4H PRN FEVER OR PAIN Artificial Tears 1 drop 03/30/17 01:10 03/30/17 01:18 Artificial Tears OU 1 drop BID PRN Administration DRY EYES Piperacillin/Tazobactam/Dextrose 50 mls @ 100 mls/hr 03/29/17 16:30 03/31/17 03 :03 Zosyn 3.375gm Ivpb (Premix) IVPB 100 mls/hr Q6H-IV KAYLA Administration Protocol Vancomycin HCl 1,250 mg/ 250 mls @ 166.667 mls/hr 03/30/17 17:00 03/30/17 17:03 Dextrose IVPB 166.667 mls/hr DAILY@1700 KAYLA Administration Protocol Nystatin 1 applic 03/30/17 11:45 03/30/17 21:46 Mycostatin Ointment - TP 1 applic BID KAYLA Administration ASSESSMENT/PLAN: 31 yo M with PMHx of Asthma, presented to the ED after trauma to the right hernandez x 1 week and was found to have RLE cellulitis. #RLE Cellulitis with possible infected hematoma s/p trauma -WBC 9. (improved from 13 in ED). -blistering of hernandez -Cont IV ABx: Vancomycin and Zosyn (Day 3) -Vanc Trough today 4:30pm -No need for any vascular intervention per vascular -Held ibuprofen and heparin due to hematoma -FU blood culture. No growth after 48 hours -FU ortho reccs -aggressive PT when ready #Tinea Pedis -Nystatin ointment #Constipation -Miralax #Asthma -currently not active #FEN: -Not on any fluids -Electolytes WNL -Regular diet #DVT PPX: -Not on Heparin because of Hematoma Visit type - Emergency Visit Emergency Visit: Yes ED Registration Date: 03/30/17 Care time: The patient presented to the Emergency Department on the above date and was hospitalized for further evaluation of their emergent condition. - New Patient This patient is new to me today: No - Critical Care Critical Care patient: No
[2017-03-31] MEDS: NYSTATIN 100000 UNIT/GM TOPICAL OINTMENT 15 GM TUBE TP SCH ×2 (10:01→21:40)
--- NOTE | 2017-03-31 14:18 | PN ---
Progress Note, Physician History of Present Illness: patient doing well no issues erythema improving - Current Medication List Current Medications: Active Medications Acetaminophen (Tylenol -) 650 mg PO Q4H PRN PRN Reason: FEVER OR PAIN Artificial Tears (Artificial Tears) 1 drop OU BID PRN PRN Reason: DRY EYES Last Admin: 03/30/17 01:18 Dose: 1 drop Piperacillin/Tazobactam/Dextrose (Zosyn 3.375gm Ivpb (Premix)) 50 mls @ 100 mls /hr IVPB Q6H-IV KAYLA PRN Reason: Protocol Last Admin: 03/31/17 09:55 Dose: 100 mls/hr Vancomycin HCl 1,250 mg/ (Dextrose) 250 mls @ 166.667 mls/hr IVPB DAILY@1700 KAYLA PRN Reason: Protocol Last Admin: 03/30/17 17:03 Dose: 166.667 mls/hr Nystatin (Mycostatin Ointment -) 1 applic TP BID [facility] Last Admin: 03/31/17 10:01 Dose: 1 applic - Objective Vital Signs: Vital Signs Temperature 98.5 F 03/31/17 05:59 Pulse Rate 70 03/31/17 05:59 Respiratory Rate 20 03/31/17 05:59 Blood Pressure 136/72 03/31/17 05:59 O2 Sat by Pulse Oximetry (%) 98 03/30/17 04:00 Constitutional: Yes: No Distress, Calm Cardiovascular: Yes: Regular Rate and Rhythm Respiratory: Yes: Regular, CTA Bilaterally Gastrointestinal: Yes: Normal Bowel Sounds, Soft Musculoskeletal: Yes: Other Extremities: Yes: Other (improving blebs stbale) Labs: CBC, BMP 03/31/17 06:00 03/31/17 06:00 Assessment/Plan Right Lower Ext cellulitis, acute swelling plan continue abx ct scan seen ortho note noted rest as per primary follow vanco trough
--- NOTE | 2017-03-31 15:22 | PN ---
Teaching Attending Note Name of Resident: Naresh James ATTENDING PHYSICIAN STATEMENT I saw and evaluated the patient. I reviewed the resident's note and discussed the case with the resident. I agree with the resident's findings and plan as documented. SUBJECTIVE: No fever or chills. Pain in R leg has improved. cont to have chills after abx OBJECTIVE: NAD , AAOx3 CV: RRR Lungs : CTAB Ext: R leg with erythema, edema , and increased circumference ( all improved ). slight tenderness to palpation . blistering on medial aspect of the middle calf ( draining serous fluid). DP 1+ b/l . PT 1+ b/l . bruises around medial malleolus ASSESSMENT AND PLAN: 31 y/o lady with h/o Asthma, who presented with R leg pain and swelling after trauma , he was found to have a fluid collection in leg and cellulitis 1- Cellulitis with possible infected hematoma after trauma: leukocytosis is better and pt has no fever. Leg has much improved. No signs of compartment syndrome - cont zosyn and vanco - vanco trough today at 4:30 pm - follow neuro vascular exam - follow blood cx 2- Asthma, not active
[2017-03-31] MEDS: VANCOMYCIN 1,250 MG in DEXTROSE 5%-WATER - 250 ML IVPB SCH (16:01)
--- NOTE | 2017-03-31 16:16 | PN ---
Progress Note (short form) - Note Progress Note: Pt seen and examined. His right LE cellulitis is dramatically improved. He is able to ambulate with pain. Much less pain, less erythema, less swelling. RLE grossly NVI. Good ROM at the right knee, ankle, foot, toes. No specific fluid collection. There is a small blister weeping inflammatory fluid. No pus. Imp Overall the pt is much improved. Rec Con't IV abx. WBAT I rec P.T. for ambulation if the pt needs it. He may not. Can DC from an ortho pov, no surgery planned.
[2017-03-31] MEDS: ARTIFICIAL TEARS (POLYVINYL ALCOHOL 1.4%) OPTH DROPS OU PRN (21:33)
[2017-04-01] MEDS: PIPERACILLIN/TAZOB 3.375 GM 50 ML IVPB SCH ×4 (02:11→22:08)
[2017-04-01] MEDS: VANCOMYCIN 1,250 MG in DEXTROSE 5%-WATER - 250 ML IVPB SCH ×2 (05:29→17:36)
[2017-04-01 08:43] LABS: BASOPHIL 0.5 % (0-2.0); EOSINOPHIL 2.8 % (0-4.5); MCH 28.3 pg (25.7-33.7); MCHC 34.1 g/dl (32.0-35.9); MEAN CELL VOLUME 82.9 fl (80-96); MEAN PLT VOLUME 8.7 fl (7.5-11.1); NEUTROPHILS 68.5 % (42.8-82.8); PLATELET COUNT 280 K/MM3 (134-434); RDW 13.4 % (11.9-15.9); WHITE BLOOD COUNT 10.1 K/mm3 (4.0-10.0)
--- NOTE | 2017-04-01 13:10 | PN ---
Progress Note, Physician History of Present Illness: patient doing well no issues erythema improving - Current Medication List Current Medications: Active Medications Acetaminophen (Tylenol -) 650 mg PO Q4H PRN PRN Reason: FEVER OR PAIN Artificial Tears (Artificial Tears) 1 drop OU BID PRN PRN Reason: DRY EYES Last Admin: 03/31/17 21:33 Dose: 1 drop Piperacillin/Tazobactam/Dextrose (Zosyn 3.375gm Ivpb (Premix)) 50 mls @ 100 mls /hr IVPB Q6H-IV KAYLA PRN Reason: Protocol Last Admin: 04/01/17 08:38 Dose: 100 mls/hr Vancomycin HCl 1,250 mg/ (Dextrose) 250 mls @ 166.667 mls/hr IVPB BID@0500, 1700 KAYLA PRN Reason: Protocol Last Admin: 04/01/17 05:29 Dose: 166.667 mls/hr Nystatin (Mycostatin Ointment -) 1 applic TP BID KAYLA Last Admin: 03/31/17 21:40 Dose: Not Given - Objective Vital Signs: Vital Signs Temperature 98.0 F 04/01/17 10:00 Pulse Rate 77 04/01/17 10:00 Respiratory Rate 18 04/01/17 10:00 Blood Pressure 138/83 04/01/17 10:00 O2 Sat by Pulse Oximetry (%) 97 04/01/17 09:00 Constitutional: Yes: No Distress, Calm Cardiovascular: Yes: Regular Rate and Rhythm Respiratory: Yes: Regular, CTA Bilaterally Gastrointestinal: Yes: Normal Bowel Sounds, Soft Musculoskeletal: Yes: WNL Extremities: Yes: Other Wound/Incision: Yes: Other Neurological: Yes: Alert, Oriented Psychiatric: Yes: Alert, Oriented Labs: CBC, BMP 04/01/17 08:35 03/31/17 06:00 Assessment/Plan Right Lower Ext cellulitis, acute swelling asthma leukocytosis plan continue abx vanco trough noted vanco dose increased continue current mgmt
--- NOTE | 2017-04-01 14:39 | PN ---
Teaching Attending Note ATTENDING PHYSICIAN STATEMENT I saw and evaluated the patient. I reviewed the resident's note and discussed the case with the resident. I agree with the resident's findings and plan as documented. SUBJECTIVE: OBJECTIVE: ASSESSMENT AND PLAN:
--- NOTE | 2017-04-01 15:00 | PN ---
Progress Note (short form) - Note Progress Note: Subjective: nof ever or chills. feels better Objective: Vital Signs: Last Vital Signs Temp Pulse Resp BP Pulse Ox 98.0 F 77 18 138/83 97 04/01/17 10:00 04/01/17 10:00 04/01/17 10:00 04/01/17 10:00 04/01/17 09:00 Laboratory Results - last 24 hr 03/31/17 04/01/17 16:30 08:35 WBC 10.1 H RBC 5.13 Hgb 14.5 Hct 42.6 MCV 82.9 MCH 28.3 MCHC 34.1 RDW 13.4 Plt Count 280 MPV 8.7 Neutrophils % 68.5 D Lymphocytes % 18.7 D Monocytes % 9.5 Eosinophils % 2.8 D Basophils % 0.5 Vancomycin Pre-Dose 2.235 L* Physical Exam: NAD , AAOx3 CV: RRR Lungs : CTAB Ext: R leg with erythema, edema , and increased circumference ( all improved ). slight tenderness to palpation . blistering on medial aspect of the middle calf ( draining serous fluid). DP 1+ b/l . PT 1+ b/l . bruises around medial malleolus ASSESSMENT AND PLAN: 32 y/o man with h/o Asthma, who presented with R leg pain and swelling after trauma , he was found to have a fluid collection in leg and cellulitis 1- Cellulitis with possible infected hematoma after trauma: improved - cont zosyn and vanco - next vanco trough tomorrow evening - follow neuro vascular exam - follow blood cx 2- Asthma, not active HLOC Visit type - Emergency Visit Emergency Visit: Yes ED Registration Date: 03/30/17 Care time: The patient presented to the Emergency Department on the above date and was hospitalized for further evaluation of their emergent condition. - New Patient This patient is new to me today: No - Critical Care Critical Care patient: No
[2017-04-01] MEDS: NYSTATIN 100000 UNIT/GM TOPICAL OINTMENT 15 GM TUBE TP SCH ×2 (17:36→22:09)
[2017-04-01] MEDS ORDERED: PT OWN MED DRAWER 7, Y5N ONE (21:41)
[2017-04-01] MEDS: ACETAMINOPHEN 325 MG TABLET (FP) PO PRN (22:08)
[2017-04-02] MEDS: PIPERACILLIN/TAZOB 3.375 GM 50 ML IVPB SCH ×4 (02:05→21:40)
[2017-04-02] MEDS: VANCOMYCIN 1,250 MG in DEXTROSE 5%-WATER - 250 ML IVPB SCH ×2 (05:34→17:05)
[2017-04-02 08:03] LABS: BASOPHIL 0.6 % (0-2.0); EOSINOPHIL 2.5 % (0-4.5); MCH 28.2 pg (25.7-33.7); MCHC 34.2 g/dl (32.0-35.9); MEAN CELL VOLUME 82.4 fl (80-96); MEAN PLT VOLUME 8.2 fl (7.5-11.1); NEUTROPHILS 70.5 % (42.8-82.8); PLATELET COUNT 264 K/MM3 (134-434); RDW 13.2 % (11.9-15.9); WHITE BLOOD COUNT 10.3 K/mm3 (4.0-10.0)
--- NOTE | 2017-04-02 09:06 | PN ---
Progress Note (short form) - Note Progress Note: Ortho Pt seen and examined. RIght LE cellulitis- improving Selected Entries 04/02/17 06:05 Temperature 97.7 F Pulse Rate 73 Respiratory 19 Rate Blood Pressure 118/63 Laboratory Tests 04/02/17 07:35 WBC 10.3 H Hgb 14.1 Hct 41.1 Plt Count 264 + blister draining serous fluid, no pus, decr erythema, decr swelling, decr ttp , incr rom nvi a/p ABx as per ID no surgical intervention at this time will continue to monitor wbat elevation will follow d/w DR. Santiago
[2017-04-02] MEDS: NYSTATIN 100000 UNIT/GM TOPICAL OINTMENT 15 GM TUBE TP SCH ×2 (09:42→21:40)
[2017-04-02] MEDS: ACETAMINOPHEN 325 MG TABLET (FP) PO PRN (15:16)
--- NOTE | 2017-04-02 16:25 | PN ---
Progress Note, Physician History of Present Illness: patient doing well no issues erythema improving bleb has formed well - Current Medication List Current Medications: Active Medications Acetaminophen (Tylenol -) 650 mg PO Q4H PRN PRN Reason: FEVER OR PAIN Last Admin: 04/02/17 15:16 Dose: 650 mg Artificial Tears (Artificial Tears) 1 drop OU BID PRN PRN Reason: DRY EYES Last Admin: 03/31/17 21:33 Dose: 1 drop Piperacillin/Tazobactam/Dextrose (Zosyn 3.375gm Ivpb (Premix)) 50 mls @ 100 mls /hr IVPB Q6H-IV KAYLA PRN Reason: Protocol Last Admin: 04/02/17 15:06 Dose: 100 mls/hr Vancomycin HCl 1,250 mg/ (Dextrose) 250 mls @ 166.667 mls/hr IVPB BID@0500, 1700 KAYLA PRN Reason: Protocol Last Admin: 04/02/17 05:34 Dose: 166.667 mls/hr Nystatin (Mycostatin Ointment -) 1 applic TP BID [facility] Last Admin: 04/02/17 09:42 Dose: 1 applic - Objective Vital Signs: Vital Signs Temperature 98.3 F 04/02/17 14:51 Pulse Rate 74 04/02/17 14:51 Respiratory Rate 18 04/02/17 14:51 Blood Pressure 101/51 04/02/17 14:51 O2 Sat by Pulse Oximetry (%) 97 04/02/17 09:00 Constitutional: Yes: No Distress, Calm Neck: Yes: Supple Cardiovascular: Yes: Regular Rate and Rhythm Respiratory: Yes: Regular, CTA Bilaterally Gastrointestinal: Yes: Normal Bowel Sounds, Soft Musculoskeletal: Yes: Other Extremities: Yes: Other Wound/Incision: Yes: Other Neurological: Yes: Alert, Oriented Psychiatric: Yes: Alert, Oriented Labs: CBC, BMP 04/02/17 07:35 03/31/17 06:00 Assessment/Plan Right Lower Ext cellulitis, acute swelling asthma leukocytosis blister plan continue abx will discuss with the team about his bleb
--- NOTE | 2017-04-02 17:48 | PN ---
Progress Note (short form) - Note Progress Note: Subjective: no fever or chills. feels better . pain in his R leg still, but improved Objective: Vital Signs: Last Vital Signs Temp Pulse Resp BP Pulse Ox 98.3 F 74 18 101/51 97 04/02/17 14:51 04/02/17 14:51 04/02/17 14:51 04/02/17 14:51 04/02/17 09:00 Laboratory Results - last 24 hr 04/02/17 07:35 WBC 10.3 H RBC 4.99 Hgb 14.1 Hct 41.1 MCV 82.4 MCH 28.2 MCHC 34.2 RDW 13.2 Plt Count 264 MPV 8.2 Neutrophils % 70.5 Lymphocytes % 15.4 Monocytes % 11.0 H Eosinophils % 2.5 Basophils % 0.6 Physical Exam: NAD , AAOx3 CV: RRR Lungs : CTAB Ext: R leg with erythema, edema , and increased circumference, now localized to mid calf . slight tenderness to palpation . blistering on medial aspect of the middle calf ( draining serous fluid). DP 1+ b/l . PT 1+ b/l . bruises around medial malleolus ASSESSMENT AND PLAN: 32 y/o man with h/o Asthma, who presented with R leg pain and swelling after trauma , he was found to have a fluid collection in leg and cellulitis 1- Cellulitis with possible infected hematoma after trauma: improved - cont zosyn and vanco - vanco trough tomorrow at 4:30 am , goal 10-15 - blood cx Neg to date 2- Asthma, not active HLOC Visit type - Emergency Visit Emergency Visit: Yes ED Registration Date: 03/30/17 Care time: The patient presented to the Emergency Department on the above date and was hospitalized for further evaluation of their emergent condition. - New Patient This patient is new to me today: No - Critical Care Critical Care patient: No
[2017-04-03] MEDS: ACETAMINOPHEN 325 MG TABLET (FP) PO PRN ×2 (01:55→19:58)
[2017-04-03] MEDS: PIPERACILLIN/TAZOB 3.375 GM 50 ML IVPB SCH ×4 (02:26→20:46)
[2017-04-03] MEDS: VANCOMYCIN 1,250 MG in DEXTROSE 5%-WATER - 250 ML IVPB SCH (05:49)
[2017-04-03] MEDS ORDERED: VANCOMYCIN 1,500 MG in DEXTROSE 5%-WATER - 250 ML IVPB SCH ×2 (06:22→18:00)
[2017-04-03] MEDS ORDERED: VANCOMYCIN 250 MG in DEXTROSE 5%-WATER - 100 ML IVPB ONE (06:36)
[2017-04-03 06:41] LABS: BASOPHIL 0.7 % (0-2.0); EOSINOPHIL 2.3 % (0-4.5); MCH 28.1 pg (25.7-33.7); MCHC 33.6 g/dl (32.0-35.9); MEAN CELL VOLUME 83.6 fl (80-96); MEAN PLT VOLUME 8.3 fl (7.5-11.1); NEUTROPHILS 67.5 % (42.8-82.8); PLATELET COUNT 266 K/MM3 (134-434); RDW 13.3 % (11.9-15.9); WHITE BLOOD COUNT 9.8 K/mm3 (4.0-10.0)
[2017-04-03] MEDS: NYSTATIN 100000 UNIT/GM TOPICAL OINTMENT 15 GM TUBE TP SCH ×2 (09:36→21:09)
--- NOTE | 2017-04-03 16:36 | PN ---
Progress Note (short form) - Note Progress Note: Pt seen and examined. He feels much better. He is able to ambulate with min pain. AVSS Blood Cx Neg WBC decreased to 9.8 PE He is ambulating, FWB with no sig pain. Area of erythema continues to get smaller. Less tender, less swollen. Small amount of serous drainage, no pus. Imp Con't to improve. Con't abx as per ID WBAT Can Dc from an ortho pov once cleared by PMD and ID
--- NOTE | 2017-04-03 17:23 | PN ---
Progress Note, Physician History of Present Illness: patient doing well no issues erythema improving bleb has formed well able to ambulate with minimal pain wbc has normalized - Current Medication List Current Medications: Active Medications Acetaminophen (Tylenol -) 650 mg PO Q4H PRN PRN Reason: FEVER OR PAIN Last Admin: 04/03/17 01:55 Dose: 650 mg Artificial Tears (Artificial Tears) 1 drop OU BID PRN PRN Reason: DRY EYES Last Admin: 03/31/17 21:33 Dose: 1 drop Piperacillin/Tazobactam/Dextrose (Zosyn 3.375gm Ivpb (Premix)) 50 mls @ 100 mls /hr IVPB Q6H-IV KAYLA PRN Reason: Protocol Last Admin: 04/03/17 14:47 Dose: 100 mls/hr Vancomycin HCl 1,500 mg/ (Dextrose) 250 mls @ 166.667 mls/hr IVPB BID@0600, 1800 KAYLA PRN Reason: Protocol Nystatin (Mycostatin Ointment -) 1 applic TP BID KAYLA Last Admin: 04/03/17 09:36 Dose: 1 applic - Objective Vital Signs: Vital Signs Temperature 97.7 F 04/03/17 14:00 Pulse Rate 71 04/03/17 14:00 Respiratory Rate 18 04/03/17 14:00 Blood Pressure 130/73 04/03/17 14:00 O2 Sat by Pulse Oximetry (%) 96 04/03/17 09:00 Constitutional: Yes: No Distress, Calm HENT: Yes: Atraumatic Neck: Yes: Supple, Trachea Midline Cardiovascular: Yes: Regular Rate and Rhythm Respiratory: Yes: Regular, CTA Bilaterally Gastrointestinal: Yes: Normal Bowel Sounds, Soft Musculoskeletal: Yes: Other Extremities: Yes: Other (bleb on the hernandez) Wound/Incision: Yes: Other Neurological: Yes: Alert, Oriented Psychiatric: Yes: Alert, Oriented Labs: CBC, BMP 04/03/17 05:40 03/31/17 06:00 Assessment/Plan Right Lower Ext cellulitis, acute swelling asthma leukocytosis blister plan continue abx vanco trough noted increased vanco dose check vanc trough again before the 4th dose
--- NOTE | 2017-04-03 19:24 | PN ---
Teaching Attending Note Name of Resident: Mary Daniel ATTENDING PHYSICIAN STATEMENT I saw and evaluated the patient. I reviewed the resident's note and discussed the case with the resident. I agree with the resident's findings and plan as documented. SUBJECTIVE: no fever or chills OBJECTIVE: NAD , AAOx3 CV: RRR Lungs : CTAB Ext: R leg with erythema, edema , and increased circumference, now localized to mid calf . slight tenderness to palpation . blistering on medial aspect of the middle calf ( draining serous fluid). DP 1+ b/l . PT 1+ b/l . bruises around medial malleolus ASSESSMENT AND PLAN: 32 y/o man with h/o Asthma, who presented with R leg pain and swelling after trauma , he was found to have a fluid collection in leg and cellulitis 1- Cellulitis with possible infected hematoma after trauma: improved - cont zosyn and vanco - vanco dose increased. recheck trough tomorrow evening . goal 10-15 - blood cx Neg 2- Asthma, not active HLOC
[2017-04-03] MEDS: VANCOMYCIN 1,500 MG in DEXTROSE 5%-WATER - 500 ML IVPB SCH (21:08)
--- NOTE | 2017-04-03 22:28 | PN ---
Physical Exam: SUBJECTIVE: Patient seen and examined. Pt has no complaints. Pt feels well and does not c/o pain to Right LE. Pt denies diarrhea. No events overnight. OBJECTIVE: Vital Signs - 24 hr 04/03/17 04/03/17 04/03/17 06:54 09:00 14:00 Temperature 98.2 F 97.7 F Pulse Rate 72 71 Respiratory 20 18 Rate Blood Pressure 106/61 130/73 O2 Sat by Pulse 96 Oximetry (%) GENERAL: The patient is awake, alert, and fully oriented, in no acute distress. HEAD: Normal with no signs of trauma. EYES: Extraocular movements intact, sclera anicteric, conjunctiva clear. No ptosis. ENT: Moist mucous membranes. NECK: Trachea midline, supple. LUNGS: Breath sounds equal, clear to auscultation bilaterally, no wheezes, no crackles, no accessory muscle use. HEART: Regular rate and rhythm, S1, S2 without murmur, rub or gallop. ABDOMEN: Soft, nontender, nondistended, no guarding, no rebound. EXTREMITIES: Right LE with receding erythema. Edema noted. Slight tenderness to palpation. Large blister observed on medial side of mid-calf, draining clear yellow serous fluid. 1+ dorsalis pedis pulses kilo. Kilo capillary refill intact. PSYCH: Normal mood, normal affect. SKIN: Warm, dry, normal turgor, no rashes or lesions noted Laboratory Results - last 24 hr 04/03/17 04/03/17 04:30 05:40 WBC 9.8 RBC 4.91 Hgb 13.8 Hct 41.0 MCV 83.6 MCH 28.1 MCHC 33.6 RDW 13.3 Plt Count 266 MPV 8.3 Neutrophils % 67.5 Lymphocytes % 20.1 D Monocytes % 9.4 Eosinophils % 2.3 Basophils % 0.7 Vancomycin Pre-Dose 8.095 D Active Medications Generic Name Dose Route Start Last Admin Trade Name Freq PRN Reason Stop Dose Admin Acetaminophen 650 mg 03/28/17 18:32 04/03/17 19:58 Tylenol - PO 650 mg Q4H PRN Administration FEVER OR PAIN Artificial Tears 1 drop 03/30/17 01:10 03/31/17 21:33 Artificial Tears OU 1 drop BID PRN Administration DRY EYES Piperacillin/Tazobactam/Dextrose 50 mls @ 100 mls/hr 03/29/17 16:30 04/03/17 20 :46 Zosyn 3.375gm Ivpb (Premix) IVPB 100 mls/hr Q6H-IV KAYLA Administration Protocol Vancomycin HCl 1,500 mg/ 500 mls @ 250 mls/hr 04/03/17 22:00 04/03/17 21:08 Dextrose IVPB 250 mls/hr BID KAYLA Administration Protocol Nystatin 1 applic 03/30/17 11:45 04/03/17 21:09 Mycostatin Ointment - TP 1 applic BID KAYLA Administration ASSESSMENT/PLAN: 32yo M with PMH of asthma, presented with Right LE pain/swelling s/p trauma, found to have fluid collection. 1) possible hematoma / fluid collection - blister drained by ID - continue Zosyn and Vancomycin - Vanc trough not at goal yesterday -> Vanc dose increased to 1500mg IVPB BID - recheck Vanc trough prior to 4th increased dose, tomorrow evening - Vanc trough goal: 10-15 - blood cultures continue to be (-) - continue Tylenol prn for pain 2) asthma - inactive 3) FEN - Fluids: encourage po - Electrolytes: wnl, continue to monitor - Nutrition: regular diet 4) DVT Prophylaxis - early ambulation Visit type - Emergency Visit Emergency Visit: Yes ED Registration Date: 03/30/17 Care time: The patient presented to the Emergency Department on the above date and was hospitalized for further evaluation of their emergent condition. - New Patient This patient is new to me today: Yes Date on this admission: 04/03/17 - Critical Care Critical Care patient: No
[2017-04-03] MEDS ORDERED: traMADol HCL 50 MG TABLET PO ONE (22:54)
[2017-04-04] MEDS: PIPERACILLIN/TAZOB 3.375 GM 50 ML IVPB SCH ×4 (02:13→20:26)
[2017-04-04 08:25] LABS: MCHC 33.8 g/dl (32.0-35.9); MEAN CELL VOLUME 82.7 fl (80-96); MEAN PLT VOLUME 7.9 fl (7.5-11.1); PLATELET COUNT 283 K/MM3 (134-434); RDW 13.3 % (11.9-15.9); WHITE BLOOD COUNT 8.6 K/mm3 (4.0-10.0)
[2017-04-04 08:49] LABS: ANION GAP 8 (8-16); CALCIUM 8.3 mg/dL (8.5-10.1); CO2 26 mmol/L (21-32); CREATININE 1.2 mg/dL (0.7-1.3); GLUCOSE,RANDOM 85 mg/dL (74-106)
[2017-04-04] MEDS: VANCOMYCIN 1,500 MG in DEXTROSE 5%-WATER - 500 ML IVPB SCH ×2 (09:33→21:02)
--- NOTE | 2017-04-04 09:34 | PN ---
Progress Note (short form) - Note Progress Note: Ortho Pt seen and examined. RIght LE cellulitis- improving Selected Entries 04/04/17 06:07 Temperature 98.0 F Pulse Rate 74 Respiratory 20 Rate Blood Pressure 126/69 Laboratory Tests 04/04/17 08:00 WBC 8.6 Hgb 14.1 Hct 41.6 Plt Count 283 + blister draining serous fluid, no pus, decr erythema, decr swelling, decr ttp , incr rom nvi a/p ABx as per ID no surgical intervention at this time will continue to monitor wbat elevation will follow d/w DR. Santiago
[2017-04-04] MEDS: NYSTATIN 100000 UNIT/GM TOPICAL OINTMENT 15 GM TUBE TP SCH ×2 (10:59→21:03)
--- NOTE | 2017-04-04 13:30 | PN ---
Teaching Attending Note Name of Resident: Mary Daniel ATTENDING PHYSICIAN STATEMENT I saw and evaluated the patient. I reviewed the resident's note and discussed the case with the resident. I agree with the resident's findings and plan as documented. SUBJECTIVE:continues to have pain on ambulation. not at rest. pain not requiting pain medication. denies CP, SOB, fever, chills, N/V/C/D OBJECTIVE: Last Vital Signs Temp Pulse Resp BP Pulse Ox 98.0 F 74 20 144/76 100 04/04/17 09:56 04/04/17 09:56 04/04/17 09:56 04/04/17 09:56 04/04/17 09:00 General NAD Extremities RLE 1cm blister on medial aspect of calf with serous drainage. surrounding erythema but no longer circumferential around the leg. blister location tender with swelling limited of the calf and foot. erythema appears retracted from marked margins ASSESSMENT AND PLAN: 32 yo M with PMh Asthma, who presented to the ER with R leg pain and swelling after trauma , he was found to have a fluid collection in leg and cellulitis 1. Cellulitis with possible infected hematoma after trauma- improved, attempted to obtain fluid from blister but was unsuccessful yesterday. on Vanco/zosyn day day8. will d/w ID about duration of IV abx and when can transition to po. Vanco dosed adjusted yesterday due to subtherapeutic trough. will repeat level prior to 4th dose if stays on vanco. Cx negative. leukocytosis resolved. 2- Asthma- controlled. no signs of exacerbation 3. DVT ppx- will start hep sq as not aware of any contra-indication at this time
[2017-04-04] MEDS: HEPARIN NA (PORCINE) 5,000 UNITS/ML 1ML VIAL SQ SCH ×2 (15:57→21:03)
--- NOTE | 2017-04-04 16:35 | PN ---
Progress Note, Physician History of Present Illness: patient doing well no issues erythema improving bleb draining patients erythema improving still very tender and now localized at the site unable to bear full weight still - Current Medication List Current Medications: Active Medications Acetaminophen (Tylenol -) 650 mg PO Q4H PRN PRN Reason: FEVER OR PAIN Last Admin: 04/03/17 19:58 Dose: 650 mg Artificial Tears (Artificial Tears) 1 drop OU BID PRN PRN Reason: DRY EYES Last Admin: 03/31/17 21:33 Dose: 1 drop Heparin Sodium (Porcine) (Heparin -) 5,000 unit SQ TID KAYLA Last Admin: 04/04/17 15:57 Dose: Not Given Piperacillin/Tazobactam/Dextrose (Zosyn 3.375gm Ivpb (Premix)) 50 mls @ 100 mls /hr IVPB Q6H-IV KAYLA PRN Reason: Protocol Last Admin: 04/04/17 15:53 Dose: 100 mls/hr Vancomycin HCl 1,500 mg/ (Dextrose) 500 mls @ 250 mls/hr IVPB BID KAYLA PRN Reason: Protocol Last Admin: 04/04/17 09:33 Dose: 250 mls/hr Nystatin (Mycostatin Ointment -) 1 applic TP BID [facility] Last Admin: 04/04/17 10:59 Dose: 1 applic - Objective Vital Signs: Vital Signs Temperature 97.8 F 04/04/17 14:00 Pulse Rate 71 04/04/17 14:00 Respiratory Rate 18 04/04/17 14:00 Blood Pressure 144/76 04/04/17 09:56 O2 Sat by Pulse Oximetry (%) 100 04/04/17 09:00 Constitutional: Yes: No Distress, Calm, Obese Cardiovascular: Yes: Regular Rate and Rhythm Respiratory: Yes: Regular, CTA Bilaterally Gastrointestinal: Yes: Normal Bowel Sounds, Soft Musculoskeletal: Yes: Other Extremities: Yes: Erythema, Other (bleb on the hernandez) Integumentary: Yes: Erythema, Other (erythema from the rest of the leg except that site ahs improved) Wound/Incision: Yes: Other (dressing removed wound looked at still very tender and localized erythema) Labs: CBC, BMP 04/04/17 08:00 04/04/17 08:00 Assessment/Plan Right Lower Ext cellulitis, acute swelling asthma leukocytosis blister plan conitnue abx physio monitor the erythema bleb
--- NOTE | 2017-04-04 22:07 | PN ---
Physical Exam: SUBJECTIVE: Patient seen and examined. Pt had increased pain overnight after blister was drained, which was relieved with one dose of Tramadol. Pt reports difficulty walking 2/2 pain. Pt denies fever, chills, chest pain, palpitations , sob, abdominal pain, nausea, vomiting, diarrhea. OBJECTIVE: Vital Signs Period Temp Pulse Resp BP Sys/[place] Pulse Ox Last 24 Hr 97.8 F-98.0 F 71-74 18-20 126-144/69-76 100 GENERAL: The patient is awake, alert, and fully oriented, in no acute distress. HEAD: Normal with no signs of trauma. EYES: Extraocular movements intact, sclera anicteric, conjunctiva clear. No ptosis. ENT: Moist mucous membranes. NECK: Trachea midline, supple. LUNGS: Breath sounds equal, clear to auscultation bilaterally, no wheezes, no crackles, no accessory muscle use. HEART: Regular rate and rhythm, S1, S2 without murmur, rub or gallop. ABDOMEN: Soft, nontender, nondistended, no guarding, no rebound. EXTREMITIES: Right LE with receding erythema. Blister location tender to palpation, serous drainage. PSYCH: Normal mood, normal affect. SKIN: Warm, dry, normal turgor, no rashes or lesions noted Laboratory Results - last 24 hr 04/04/17 04/04/17 08:00 08:00 WBC 8.6 RBC 5.03 Hgb 14.1 Hct 41.6 MCV 82.7 MCH 28.0 MCHC 33.8 RDW 13.3 Plt Count 283 MPV 7.9 Sodium 138 Potassium 4.3 Chloride 104 Carbon Dioxide 26 Anion Gap 8 BUN 13 Creatinine 1.2 Random Glucose 85 Calcium 8.3 L Active Medications Generic Name Dose Route Start Last Admin Trade Name Freq PRN Reason Stop Dose Admin Acetaminophen 650 mg 03/28/17 18:32 04/03/17 19:58 Tylenol - PO 650 mg Q4H PRN Administration FEVER OR PAIN Artificial Tears 1 drop 03/30/17 01:10 03/31/17 21:33 Artificial Tears OU 1 drop BID PRN Administration DRY EYES Heparin Sodium (Porcine) 5,000 unit 04/04/17 14:00 04/04/17 21:03 Heparin - SQ Not Given TID KAYLA Piperacillin/Tazobactam/Dextrose 50 mls @ 100 mls/hr 03/29/17 16:30 04/04/17 20 :26 Zosyn 3.375gm Ivpb (Premix) IVPB 100 mls/hr Q6H-IV KAYLA Administration Protocol Vancomycin HCl 1,500 mg/ 500 mls @ 250 mls/hr 04/03/17 22:00 04/04/17 21:02 Dextrose IVPB 250 mls/hr BID KAYLA Administration Protocol Nystatin 1 applic 03/30/17 11:45 04/04/17 21:03 Mycostatin Ointment - TP 1 applic BID KAYLA Administration ASSESSMENT/PLAN: 32yo M with PMH of asthma, presented with Right LE pain/swelling s/p trauma, found to have fluid collection. 1) cellulitis 2/2 trauma with possible hematoma / fluid collection - continue Zosyn and Vancomycin - f/u Vanc trough, goal: 10-15 - leukocytosis resolved - continue Tylenol prn for pain 2) asthma - inactive 3) FEN - Fluids: encourage po - Electrolytes: wnl, continue to monitor - Nutrition: regular diet 4) Prophylaxis - DVT ppx with Heparin 5,000U SQ TID - deconditioning ppx with PT Consult Visit type - Emergency Visit Emergency Visit: Yes ED Registration Date: 03/30/17 Care time: The patient presented to the Emergency Department on the above date and was hospitalized for further evaluation of their emergent condition. - New Patient This patient is new to me today: No - Critical Care Critical Care patient: No
[2017-04-05] MEDS: PIPERACILLIN/TAZOB 3.375 GM 50 ML IVPB SCH ×3 (02:04→15:31)
[2017-04-05] MEDS: HEPARIN NA (PORCINE) 5,000 UNITS/ML 1ML VIAL SQ SCH ×3 (06:24→21:33)
[2017-04-05 08:37] LABS: ALBUMIN 3.2 g/dl (3.4-5.0); ANION GAP 11 (8-16); CALCIUM 8.5 mg/dL (8.5-10.1); CO2 24 mmol/L (21-32); GLUCOSE,RANDOM 82 mg/dL (74-106); SGOT/AST 15 U/L (15-37); SGPT/ALT 31 U/L (12-78)
[2017-04-05 08:39] LABS: ALK PHOS 61 U/L (45-117); BILIRUBIN,TOTAL 0.3 mg/dL (0.2-1.0); CREATININE 1.2 mg/dL (0.7-1.3)
[2017-04-05] MEDS: VANCOMYCIN 1,500 MG in DEXTROSE 5%-WATER - 500 ML IVPB SCH (11:10)
[2017-04-05] MEDS: NYSTATIN 100000 UNIT/GM TOPICAL OINTMENT 15 GM TUBE TP SCH ×2 (11:15→21:33)
--- NOTE | 2017-04-05 16:04 | PN ---
Progress Note, Physician History of Present Illness: leg looking much better has developed tenderness in the rt medial thigh no swelling or fluctuation noted - Current Medication List Current Medications: Active Medications Acetaminophen (Tylenol -) 650 mg PO Q4H PRN PRN Reason: FEVER OR PAIN Last Admin: 04/03/17 19:58 Dose: 650 mg Artificial Tears (Artificial Tears) 1 drop OU BID PRN PRN Reason: DRY EYES Last Admin: 03/31/17 21:33 Dose: 1 drop Heparin Sodium (Porcine) (Heparin -) 5,000 unit SQ TID KAYLA Last Admin: 04/05/17 14:57 Dose: Not Given Piperacillin/Tazobactam/Dextrose (Zosyn 3.375gm Ivpb (Premix)) 50 mls @ 100 mls /hr IVPB Q6H-IV KAYLA PRN Reason: Protocol Last Admin: 04/05/17 15:31 Dose: 100 mls/hr Vancomycin HCl 1,500 mg/ (Dextrose) 500 mls @ 250 mls/hr IVPB BID KAYLA PRN Reason: Protocol Last Admin: 04/05/17 11:10 Dose: 250 mls/hr Nystatin (Mycostatin Ointment -) 1 applic TP BID [facility] Last Admin: 04/05/17 11:15 Dose: 1 applic - Objective Vital Signs: Vital Signs Temperature 97.8 F 04/05/17 14:00 Pulse Rate 74 04/05/17 09:08 Respiratory Rate 20 04/05/17 09:08 Blood Pressure 129/68 04/05/17 09:08 O2 Sat by Pulse Oximetry (%) 100 04/05/17 09:00 Constitutional: Yes: No Distress, Calm Cardiovascular: Yes: Regular Rate and Rhythm Respiratory: Yes: Regular, CTA Bilaterally Gastrointestinal: Yes: Normal Bowel Sounds, Soft Musculoskeletal: Yes: Other (pain in the rt medial thigh) Extremities: Yes: Other Integumentary: Yes: Erythema (improving) Wound/Incision: Yes: Other (improving) Neurological: Yes: Alert, Oriented Psychiatric: Yes: Alert, Oriented Labs: CBC, BMP 04/04/17 08:00 04/05/17 06:20 Assessment/Plan Right Lower Ext cellulitis, acute swelling asthma leukocytosis blister plan changed abx to oral will see how patient is doing tomorrow rest continue as per primary team
[2017-04-05] MEDS: AMOX TR/POT CLAV 875MG/125MG TABLETS (FP) PO SCH (17:43)
--- NOTE | 2017-04-05 17:46 | PN ---
Teaching Attending Note Name of Resident: Mary Daniel ATTENDING PHYSICIAN STATEMENT I saw and evaluated the patient. I reviewed the resident's note and discussed the case with the resident. I agree with the resident's findings and plan as documented. SUBJECTIVE: Patient with no new complaints. Is able to ambulate without any issues Tolerating antibiotic therapy well. OBJECTIVE: Last Vital Signs Temp Pulse Resp BP Pulse Ox 97.8 F 74 20 129/68 100 04/05/17 14:00 04/05/17 09:08 04/05/17 09:08 04/05/17 09:08 04/05/17 09:00 General- not in any distress, restign comfortably Extremities - right leg with decreasing erythema and eschar- like lesion w/ no purulent discharge seen ASSESSMENT AND PLAN: 32 yo M with PMh Asthma, who presented with R leg pain and swelling after trauma , he was found to have a fluid collection in leg and cellulitis #Right leg Cellulitis with possible infected hematoma after trauma- improved, attempted to obtain fluid from blister but was unsuccessful, s/p 9 days pf vancomycin and zosyn. ID recs appreciated and antibiotics changed to clindamycin and augmentin. -continue above PO antibiotics -leg elevation -warm compresses -tylenol prn for pain control -HIV serology # Asthma- controlled. no signs of exacerbation #DVT ppx- -heparin sc for dvt ppx
[2017-04-05] MEDS: CLINDAMYCIN HCL 150 MG CAPSULE (FP) PO SCH (21:33)
--- NOTE | 2017-04-05 21:47 | PN ---
Physical Exam: SUBJECTIVE: Patient seen and examined. Pt reports leg is feeling better. Pt denies fever, chills, nausea, vomiting, chest pain, palpitations, sob, abdominal pain. No events overnight. OBJECTIVE: Vital Signs - 24 hr 04/04/17 04/05/17 04/05/17 22:00 06:30 09:00 Temperature 98.2 F Pulse Rate 74 68 Respiratory 18 20 Rate Blood Pressure 129/74 132/73 O2 Sat by Pulse 100 Oximetry (%) 04/05/17 04/05/17 09:08 14:00 Temperature 97.8 F 97.8 F Pulse Rate 74 Respiratory 20 Rate Blood Pressure 129/68 O2 Sat by Pulse Oximetry (%) GENERAL: The patient is awake, alert, and fully oriented, in no acute distress. HEAD: Normal with no signs of trauma. EYES: Extraocular movements intact, sclera anicteric, conjunctiva clear. No ptosis. ENT: Moist mucous membranes. NECK: Trachea midline, supple. LUNGS: Breath sounds equal, clear to auscultation bilaterally, no wheezes, no crackles, no accessory muscle use. HEART: Regular rate and rhythm, S1, S2 without murmur, rub or gallop. ABDOMEN: Soft, nontender, nondistended, no guarding, no rebound. EXTREMITIES: Right LE with receding erythema. Bleb location is less tender to palpation today. No drainage/discharge appreciated. PSYCH: Normal mood, normal affect. SKIN: Warm, dry, normal turgor, no rashes or lesions noted Laboratory Results - last 24 hr 04/05/17 04/05/17 06:20 09:20 Sodium 138 Potassium 4.5 Chloride 103 Carbon Dioxide 24 Anion Gap 11 BUN 18 D Creatinine 1.2 Creat Clearance w eGFR > 60 Random Glucose 82 Calcium 8.5 Total Bilirubin 0.3 D AST 15 D ALT 31 D Alkaline Phosphatase 61 Total Protein 7.0 Albumin 3.2 L Vancomycin Pre-Dose 11.015 H D Active Medications Generic Name Dose Route Start Last Admin Trade Name Freq PRN Reason Stop Dose Admin Acetaminophen 650 mg 03/28/17 18:32 04/03/17 19:58 Tylenol - PO 650 mg Q4H PRN Administration FEVER OR PAIN Amoxicillin/Clavulanate Potassium 1 tab 04/05/17 17:30 04/05/17 17:43 Augmentin - 875mg Tablet PO 1 tab BID@0800,1730 KAYLA Administration Artificial Tears 1 drop 03/30/17 01:10 03/31/17 21:33 Artificial Tears OU 1 drop BID PRN Administration DRY EYES Clindamycin HCl 300 mg 04/05/17 22:00 Cleocin - PO TID [facility] Heparin Sodium (Porcine) 5,000 unit 04/04/17 14:00 04/05/17 14:57 Heparin - SQ Not Given TID [facility] Nystatin 1 applic 03/30/17 11:45 04/05/17 11:15 Mycostatin Ointment - TP 1 applic BID KAYLA Administration ASSESSMENT/PLAN: 32yo M with PMH of asthma, presented with Right LE pain/swelling s/p trauma, found to have fluid collection and cellulitis. 1) cellulitis 2/2 trauma with possible hematoma / fluid collection - s/p 9 days of Zosyn and Vancomycin - Vanc trough at goal today, goal: 10-15 - Vanc and Zosyn D/Scott, Clindamycin PO and Augmentin PO initiated per ID ( Dr. Barrios) - continue Tylenol prn for pain - encourage leg elevation - warm compresses prn - f/u HIV serology 2) asthma - inactive 3) FEN - Fluids: encourage po - Electrolytes: wnl, continue to monitor - Nutrition: regular diet 4) Prophylaxis - DVT ppx with Heparin 5,000U SQ TID - deconditioning ppx with PT Consult Visit type - Emergency Visit Emergency Visit: Yes ED Registration Date: 03/30/17 Care time: The patient presented to the Emergency Department on the above date and was hospitalized for further evaluation of their emergent condition. - New Patient This patient is new to me today: No - Critical Care Critical Care patient: No
[2017-04-05] MEDS: ACETAMINOPHEN 325 MG TABLET (FP) PO PRN (22:43)
[2017-04-06] MEDS: HEPARIN NA (PORCINE) 5,000 UNITS/ML 1ML VIAL SQ SCH ×3 (05:41→21:23)
[2017-04-06] MEDS: CLINDAMYCIN HCL 150 MG CAPSULE (FP) PO SCH (05:41)
--- NOTE | 2017-04-06 06:57 | PN ---
Physical Exam: SUBJECTIVE: Patient seen and examined. Pt developed a maculopapular rash overnight, s/p starting Augmentin and Clindamycin. Pt reports a hx of ezcema. Pt reports his leg is feeling better. Pt was walking around last night. OBJECTIVE: Vital Signs Period Temp Pulse Resp BP Sys/[place] Pulse Ox Last 24 Hr 97.8 F-98.5 F 72-76 20-20 129-152/62-75 100-100 GENERAL: The patient is awake, alert, and fully oriented, in no acute distress. HEAD: Normal with no signs of trauma. EYES: Extraocular movements intact, sclera anicteric, conjunctiva clear. No ptosis. ENT: Moist mucous membranes. LUNGS: Breath sounds equal, clear to auscultation bilaterally, no wheezes, no crackles, no accessory muscle use. HEART: Regular rate and rhythm, S1, S2 without murmur, rub or gallop. ABDOMEN: Soft, nontender, nondistended. EXTREMITIES: Right LE edema, warmth, erythema all reduced. Right LE bleb location only minimally painful to palpation. No drainage/discharge. PSYCH: Normal mood, normal affect. SKIN: maculopapular rash to torso and back seen which later spread to extremities Laboratory Results - last 24 hr 04/06/17 04/06/17 04/06/17 10:21 11:00 11:00 WBC 7.1 RBC 4.98 Hgb 14.2 Hct 41.6 MCV 83.6 MCH 28.6 MCHC 34.2 RDW 13.3 Plt Count 328 MPV 8.6 Total Counted 100 Neutrophils % No Result Required. Neutrophils % (Manual) 61 Lymphocytes % No Result Required. Lymphocytes % (Manual) 22 Monocytes % (Manual) 11 H Eosinophils % (Manual) 4 Myelocytes % (Man) 1 Nucleated RBC % 1 H Platelet Estimate Adequate Sodium 136 Potassium 4.4 Chloride 102 Carbon Dioxide 26 Anion Gap 8 BUN 19 H Creatinine 1.3 Creat Clearance w eGFR > 60 Random Glucose 74 Calcium 8.3 L Total Bilirubin 0.4 D AST 15 ALT 30 Alkaline Phosphatase 64 Total Protein 7.2 Albumin 3.2 L HIV 1&2 Antibody Screen Negative HIV P24 Antigen Negative Active Medications Generic Name Dose Route Start Last Admin Trade Name Freq PRN Reason Stop Dose Admin Acetaminophen 650 mg 03/28/17 18:32 04/05/17 22:43 Tylenol - PO 650 mg Q4H PRN Administration FEVER OR PAIN Amoxicillin/Clavulanate Potassium 1 tab 04/05/17 17:30 04/05/17 17:43 Augmentin - 875mg Tablet PO 1 tab BID@0800,1730 KAYLA Administration Artificial Tears 1 drop 03/30/17 01:10 03/31/17 21:33 Artificial Tears OU 1 drop BID PRN Administration DRY EYES Clindamycin HCl 300 mg 04/05/17 22:00 04/06/17 05:41 Cleocin - PO 300 mg TID KAYLA Administration Heparin Sodium (Porcine) 5,000 unit 04/04/17 14:00 04/06/17 05:41 Heparin - SQ Not Given TID KAYLA Nystatin 1 applic 03/30/17 11:45 04/05/17 21:33 Mycostatin Ointment - TP 1 applic BID KAYLA Administration ASSESSMENT/PLAN: 32yo M with PMH of ezcema and asthma, presented with Right LE pain/swelling s/p trauma, found to have fluid collection and cellulitis. 1) cellulitis 2/2 trauma with possible hematoma / fluid collection - ID (Dr. Barrios) recs appreciated: - antibiotic holiday today - if pt remains stable -> switch to doxycycline 100 mg po BID and omniceff 600 po daily - Ortho recs appreciated: - encourage leg elevation - weight bearing as tolerated - continue Tylenol prn for pain - HIV serology (-) 2) asthma - inactive 3) FEN - Fluids: encourage po - Electrolytes: wnl, continue to monitor - Nutrition: regular diet 4) Prophylaxis - DVT ppx with Heparin 5,000U SQ TID - deconditioning ppx with PT Consult Visit type - Emergency Visit Emergency Visit: Yes ED Registration Date: 03/30/17 Care time: The patient presented to the Emergency Department on the above date and was hospitalized for further evaluation of their emergent condition. - New Patient This patient is new to me today: No - Critical Care Critical Care patient: No
[2017-04-06] MEDS: NYSTATIN 100000 UNIT/GM TOPICAL OINTMENT 15 GM TUBE TP SCH ×2 (10:45→21:23)
[2017-04-06 11:42] LABS: ALBUMIN 3.2 g/dl (3.4-5.0); ANION GAP 8 (8-16); BILIRUBIN,TOTAL 0.4 mg/dL (0.2-1.0); CALCIUM 8.3 mg/dL (8.5-10.1); CO2 26 mmol/L (21-32); CREATININE 1.3 mg/dL (0.7-1.3); GLUCOSE,RANDOM 74 mg/dL (74-106); SGOT/AST 15 U/L (15-37); SGPT/ALT 30 U/L (12-78); TOT PROT 7.2 g/dl (6.4-8.2)
[2017-04-06 11:43] LABS: ALK PHOS 64 U/L (45-117)
[2017-04-06 11:59] LABS: MCH 28.6 pg (25.7-33.7); MCHC 34.2 g/dl (32.0-35.9); MEAN CELL VOLUME 83.6 fl (80-96); MEAN PLT VOLUME 8.6 fl (7.5-11.1); PLATELET COUNT 328 K/MM3 (134-434); RDW 13.3 % (11.9-15.9); WHITE BLOOD COUNT 7.1 K/mm3 (4.0-10.0)
[2017-04-06] MEDS ORDERED: diphenhydrAMINE HCL 25 MG CAPSULE (FP) PO ONE (12:00)
[2017-04-06 12:53] LABS: HIV 1 & 2 AB NEGATIVE; HIV 1 AGp24 NEGATIVE
[2017-04-06 13:37] LABS: PLATELET ESTIMATE ADEQUATE (NORMAL)
[2017-04-06 13:38] LABS: METAMYELOCYTE 1 % (0-2); MYELOCYTE 1 % (0-2); NUCLEATED RED BLOOD CELL 1 % (0-0); TOTAL CELLS COUNTED 100
--- NOTE | 2017-04-06 13:40 | PN ---
Progress Note, Physician History of Present Illness: patient was switched to oral abx developed rash all over the body patient got augmentin and clinda i think clinda was probably the cause itching no fevers - Current Medication List Current Medications: Active Medications Acetaminophen (Tylenol -) 650 mg PO Q4H PRN PRN Reason: FEVER OR PAIN Last Admin: 04/05/17 22:43 Dose: 650 mg Artificial Tears (Artificial Tears) 1 drop OU BID PRN PRN Reason: DRY EYES Last Admin: 03/31/17 21:33 Dose: 1 drop Diphenhydramine HCl (Benadryl -) 50 mg PO Q8H PRN PRN Reason: itching/rash Heparin Sodium (Porcine) (Heparin -) 5,000 unit SQ TID [facility] Last Admin: 04/06/17 05:41 Dose: Not Given Nystatin (Mycostatin Ointment -) 1 applic TP BID [facility] Last Admin: 04/05/17 21:33 Dose: 1 applic - Objective Vital Signs: Vital Signs Temperature 98.1 F 04/06/17 06:00 Pulse Rate 64 04/06/17 06:00 Respiratory Rate 20 04/06/17 06:00 Blood Pressure 115/50 04/06/17 06:00 O2 Sat by Pulse Oximetry (%) 100 04/05/17 22:00 Constitutional: Yes: No Distress, Calm Cardiovascular: Yes: Regular Rate and Rhythm Respiratory: Yes: Regular, CTA Bilaterally Gastrointestinal: Yes: Normal Bowel Sounds, Soft Musculoskeletal: Yes: Other Extremities: Yes: Other Integumentary: Yes: Erythema, Rash (all over the body) Wound/Incision: Yes: Open to air, Other (still cellulittis around the wound) Neurological: Yes: Alert, Oriented Psychiatric: Yes: Alert, Oriented Labs: CBC, BMP 04/06/17 11:00 04/06/17 11:00 Assessment/Plan Right Lower Ext cellulitis, acute swelling asthma leukocytosis blister plan will give abx holiday today if patient remians stable can switch to doxy 100 mg po twice a day daily and omniceff 600 mg po daily
--- NOTE | 2017-04-06 14:54 | PN ---
Progress Note (short form) - Note Progress Note: Ortho Pt seen and examined. RIght LE cellulitis- improving Selected Entries 04/06/17 09:00 Temperature 98.4 F Pulse Rate 78 Respiratory 20 Rate Blood Pressure 137/79 Laboratory Tests 04/06/17 11:00 WBC 7.1 Hgb 14.2 Hct 41.6 Plt Count 328 + rash from drug reaction,+ pyogenic granuloma where blister was present, no pus , decr erythema, decr swelling, decr ttp, incr rom, nvi a/p Silver nitrate application to pyogenic granuloma ABx as per ID will continue to monitor wbat elevation will follow seen with Dr. Longoria
--- NOTE | 2017-04-06 15:15 | PN ---
Teaching Attending Note Name of Resident: Mary Daniel ATTENDING PHYSICIAN STATEMENT I saw and evaluated the patient. I reviewed the resident's note and discussed the case with the resident. I agree with the resident's findings and plan as documented. SUBJECTIVE: Patient developed maculopapular rash overnight. Started on Augmentin and clindamycin yesterday. OBJECTIVE: Last Vital Signs Temp Pulse Resp BP Pulse Ox 98.4 F 78 20 137/79 100 04/06/17 09:00 04/06/17 09:00 04/06/17 09:00 04/06/17 09:00 04/06/17 09:00 General- not in any distress, resting comfortably heent -AT, NC, moist oral mucosa chest- cta b/l Extremities - right leg with decreasing erythema and eschar- like lesion w/ no purulent discharge seen skin -diffuse maculopapular rash involving torso and extremities Abnormal Lab Results 04/06/17 04/06/17 11:00 11:00 Monocytes % (Manual) 11 H Nucleated RBC % 1 H BUN 19 H Calcium 8.3 L Albumin 3.2 L ASSESSMENT AND PLAN: 32 yo M with PMh Asthma, who presented with R leg pain and swelling after trauma. Now found to have diffuse rash- likely drug rash from either clindamycin or augmentin. #Right leg Cellulitis - improving. Now with drug rash 2/2 to either clindamycin or augmentin. R/o CHINMAY. -CBC, electrolytes -ID f/u -ID giving antibiotic holiday today and then switching to doxycycline and Omnicef to complete therapy -leg elevation -warm compresses -tylenol prn for pain control -HIV serology # Asthma- controlled. no signs of exacerbation #DVT ppx- -heparin sc for dvt ppx
[2017-04-06] MEDS: diphenhydrAMINE HCL 25 MG CAPSULE (FP) PO PRN (19:59)
[2017-04-07] MEDS: AMOX TR/POT CLAV 875MG/125MG TABLETS (FP) PO SCH (03:48)
[2017-04-07] MEDS: diphenhydrAMINE HCL 25 MG CAPSULE (FP) PO PRN (05:04)
[2017-04-07] MEDS: HEPARIN NA (PORCINE) 5,000 UNITS/ML 1ML VIAL SQ SCH ×3 (06:30→22:15)
[2017-04-07] MEDS: NYSTATIN 100000 UNIT/GM TOPICAL OINTMENT 15 GM TUBE TP SCH ×2 (11:45→22:14)
--- NOTE | 2017-04-07 11:59 | PN ---
Progress Note, Physician History of Present Illness: Pt seen and examined. Chart reviewed, events noted. Pt with rash but afebrile, without distress. RLE erythema/edema improving. - Current Medication List Current Medications: Active Medications Acetaminophen (Tylenol -) 650 mg PO Q4H PRN PRN Reason: FEVER OR PAIN Last Admin: 04/05/17 22:43 Dose: 650 mg Artificial Tears (Artificial Tears) 1 drop OU BID PRN PRN Reason: DRY EYES Last Admin: 03/31/17 21:33 Dose: 1 drop Diphenhydramine HCl (Benadryl -) 50 mg PO Q8H PRN PRN Reason: itching/rash Last Admin: 04/07/17 05:04 Dose: 50 mg Heparin Sodium (Porcine) (Heparin -) 5,000 unit SQ TID [facility] Last Admin: 04/07/17 06:30 Dose: Not Given Nystatin (Mycostatin Ointment -) 1 applic TP BID [facility] Last Admin: 04/07/17 11:45 Dose: 1 applic - Objective Vital Signs: Vital Signs Temperature 97.8 F 04/07/17 02:00 Pulse Rate 66 04/07/17 02:00 Respiratory Rate 18 04/07/17 02:00 Blood Pressure 136/74 04/07/17 02:00 O2 Sat by Pulse Oximetry (%) 100 04/06/17 21:00 Constitutional: Yes: No Distress Cardiovascular: Yes: Regular Rate and Rhythm Respiratory: Yes: CTA Bilaterally Gastrointestinal: Yes: Normal Bowel Sounds, Soft Integumentary: Yes: Erythema, Rash (generalized maculopapular rash), Other (RLE less erythema/edema/tenderness. Draining serous fluid) Wound/Incision: Yes: Dressing Removed Labs: CBC, BMP 04/06/17 11:00 04/06/17 11:00 Problem List - Problems (1) Cellulitis Code(s): L03.90 - CELLULITIS, UNSPECIFIED Assessment/Plan RLE cellulitis Rash -- Pt clinically improving but not entirely resolved, still with rash -- switch antibiotics to doxycycline and keflex po -- monitor closely for increase or persistence of rash Pt currently stable
[2017-04-07] MEDS: DOXYCYCLINE HYCLATE 100 MG CAPSULE PO SCH ×2 (12:42→18:07)
--- NOTE | 2017-04-07 12:57 | PN ---
Physical Exam: SUBJECTIVE: Patient seen and examined Patient feels better, no fever or chills, would like to go home. OBJECTIVE: Vital Signs Temperature 97.8 F 04/07/17 02:00 Pulse Rate 66 04/07/17 02:00 Respiratory Rate 18 04/07/17 09:00 Blood Pressure 136/74 04/07/17 02:00 O2 Sat by Pulse Oximetry (%) 100 04/07/17 09:00 GENERAL: The patient is awake, alert, and fully oriented, in no acute distress. Maculopapular rash due to antibiotic HEAD: Normal with no signs of trauma. EYES: PERRL, extraocular movements intact, sclera anicteric, conjunctiva clear. ENT: Ears normal, oropharynx clear without exudates, moist mucous membranes. NECK: Trachea midline, full range of motion, supple. LUNGS: Breath sounds equal, clear to auscultation bilaterally, no wheezes, no crackles, no accessory muscle use. HEART: Regular rate and rhythm, S1, S2 without murmur, rub or gallop. ABDOMEN: Soft, nontender, nondistended, normoactive bowel sounds, no guarding, no rebound, no hepatosplenomegaly, no masses. EXTREMITIES: R leg with erythema, edema improving. There is an anterior hernandez superficial ulcer with superficial eschar periphery of wound. with periwound erythema and lower leg erythema with moderate tenderness to palpation of wound. There is no drainage, no appreciable fluctuance, no soft tissue crepitus. old scar from childhood. NEUROLOGICAL: Cranial nerves II through XII grossly intact. Normal speech, gait not observed. PSYCH: Normal mood, normal affect. SKIN: Warm, dry, normal turgor, no rashes or lesions noted CBCD WBC 7.1 K/mm3 (4.0-10.0) 04/06/17 11:00 RBC 4.98 M/mm3 (4.00-5.60) 04/06/17 11:00 Hgb 14.2 GM/dL (11.7-16.9) 04/06/17 11:00 Hct 41.6 % (35.4-49) 04/06/17 11:00 MCV 83.6 fl (80-96) 04/06/17 11:00 MCHC 34.2 g/dl (32.0-35.9) 04/06/17 11:00 RDW 13.3 % (11.9-15.9) 04/06/17 11:00 Plt Count 328 K/MM3 (134-434) 04/06/17 11:00 MPV 8.6 fl (7.5-11.1) 04/06/17 11:00 CMP Sodium 136 mmol/L (136-145) 04/06/17 11:00 Potassium 4.4 mmol/L (3.5-5.1) 04/06/17 11:00 Chloride 102 mmol/L (98-107) 04/06/17 11:00 Carbon Dioxide 26 mmol/L (21-32) 04/06/17 11:00 Anion Gap 8 (8-16) 04/06/17 11:00 BUN 19 mg/dL (7-18) H 04/06/17 11:00 Creatinine 1.3 mg/dL (0.7-1.3) 04/06/17 11:00 Creat Clearance w eGFR > 60 (>60) 04/06/17 11:00 Random Glucose 74 mg/dL (74-106) 04/06/17 11:00 Calcium 8.3 mg/dL (8.5-10.1) L 04/06/17 11:00 Total Bilirubin 0.4 mg/dL (0.2-1.0) D 04/06/17 11:00 AST 15 U/L (15-37) 04/06/17 11:00 ALT 30 U/L (12-78) 04/06/17 11:00 Alkaline Phosphatase 64 U/L (45-117) 04/06/17 11:00 Total Protein 7.2 g/dl (6.4-8.2) 04/06/17 11:00 Albumin 3.2 g/dl (3.4-5.0) L 04/06/17 11:00 CARDIAC ENZYMES Creatine Kinase 123 IU/L (39-308) 03/28/17 15:30 Current Medications Generic Name Dose Route Start Last Admin Trade Name Freq PRN Reason Stop Dose Admin Acetaminophen 650 mg 03/28/17 18:32 04/05/17 22:43 Tylenol - PO 650 mg Q4H PRN Administration FEVER OR PAIN Artificial Tears 1 drop 03/30/17 01:10 03/31/17 21:33 Artificial Tears OU 1 drop BID PRN Administration DRY EYES Cephalexin HCl 500 mg 04/07/17 13:00 Keflex - PO BID KAYLA Diphenhydramine HCl 50 mg 04/06/17 20:00 04/07/17 05:04 Benadryl - PO 50 mg Q8H PRN Administration itching/rash Doxycycline Hyclate 100 mg 04/07/17 12:30 04/07/17 12:42 Vibramycin - PO 100 mg BID@1000,1800 [facility] Administration Heparin Sodium (Porcine) 5,000 unit 04/04/17 14:00 04/07/17 06:30 Heparin - SQ Not Given TID [facility] Nystatin 1 applic 03/30/17 11:45 04/07/17 11:45 Mycostatin Ointment - TP 1 applic BID [facility] Administration ASSESSMENT/PLAN: 32 yo M with PMh Asthma, who presented with R leg pain and swelling after trauma. Now found to have diffuse rash- likely drug rash from either clindamycin or augmentin. # Acute Right leg Cellulitis - improving. developed drug rash due to clindamycin. which was discontinued, IV antibiotic was changed to oral Doxycyline and Keflex orally, will monitor further , further management by ID. # Escar of the wound, ortho following the wound and applying sliver nitrite to the wound. warm compresses ,tylenol prn for pain control ,HIV serology # hx of Asthma- controlled. no signs of exacerbation #DVT ppx- heparin sc for dvt ppx possible dc in am will check with ID Visit type - Emergency Visit Emergency Visit: Yes ED Registration Date: 03/30/17 Care time: The patient presented to the Emergency Department on the above date and was hospitalized for further evaluation of their emergent condition. - New Patient This patient is new to me today: Yes Date on this admission: 04/07/17 - Critical Care Critical Care patient: No
[2017-04-07] MEDS: CEPHALEXIN MONOHYDRATE 500 MG CAPSULE (UD) PO SCH ×2 (13:34→22:13)
--- NOTE | 2017-04-07 20:23 | PN ---
Progress Note (short form) - Note Progress Note: DECREASED SWELLING AND REDNESS DECREASED PAIN IMP: IMPROVING PLAN: DC TO HOME WHEN OKAY WITH MEDICINE, ABX AND F/U IN OUR OFFICE X 10 DAYS
[2017-04-08] MEDS: HEPARIN NA (PORCINE) 5,000 UNITS/ML 1ML VIAL SQ SCH ×3 (06:21→21:22)
[2017-04-08] MEDS: DOXYCYCLINE HYCLATE 100 MG CAPSULE PO SCH ×2 (10:13→17:12)
[2017-04-08] MEDS: CEPHALEXIN MONOHYDRATE 500 MG CAPSULE (UD) PO SCH ×2 (10:13→21:22)
[2017-04-08] MEDS: NYSTATIN 100000 UNIT/GM TOPICAL OINTMENT 15 GM TUBE TP SCH ×3 (10:14→21:22)
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
--- NOTE | 2017-04-08 12:56 | PN ---
Teaching Attending Note Name of Resident: Mary Daniel ATTENDING PHYSICIAN STATEMENT I saw and evaluated the patient. I reviewed the resident's note and discussed the case with the resident. I agree with the resident's findings and plan as documented. SUBJECTIVE: Patient is feeling well, and wants to go home. OBJECTIVE: Vital Signs Temperature 97.8 F 04/08/17 08:11 Pulse Rate 68 04/08/17 08:11 Respiratory Rate 18 04/08/17 08:11 Blood Pressure 119/73 04/08/17 08:11 O2 Sat by Pulse Oximetry (%) 100 04/08/17 09:00 CBCD WBC 7.1 K/mm3 (4.0-10.0) 04/06/17 11:00 RBC 4.98 M/mm3 (4.00-5.60) 04/06/17 11:00 Hgb 14.2 GM/dL (11.7-16.9) 04/06/17 11:00 Hct 41.6 % (35.4-49) 04/06/17 11:00 MCV 83.6 fl (80-96) 04/06/17 11:00 MCHC 34.2 g/dl (32.0-35.9) 04/06/17 11:00 RDW 13.3 % (11.9-15.9) 04/06/17 11:00 Plt Count 328 K/MM3 (134-434) 04/06/17 11:00 MPV 8.6 fl (7.5-11.1) 04/06/17 11:00 CMP Sodium 136 mmol/L (136-145) 04/06/17 11:00 Potassium 4.4 mmol/L (3.5-5.1) 04/06/17 11:00 Chloride 102 mmol/L (98-107) 04/06/17 11:00 Carbon Dioxide 26 mmol/L (21-32) 04/06/17 11:00 Anion Gap 8 (8-16) 04/06/17 11:00 BUN 19 mg/dL (7-18) H 04/06/17 11:00 Creatinine 1.3 mg/dL (0.7-1.3) 04/06/17 11:00 Creat Clearance w eGFR > 60 (>60) 04/06/17 11:00 Random Glucose 74 mg/dL (74-106) 04/06/17 11:00 Calcium 8.3 mg/dL (8.5-10.1) L 04/06/17 11:00 Total Bilirubin 0.4 mg/dL (0.2-1.0) D 04/06/17 11:00 AST 15 U/L (15-37) 04/06/17 11:00 ALT 30 U/L (12-78) 04/06/17 11:00 Alkaline Phosphatase 64 U/L (45-117) 04/06/17 11:00 Total Protein 7.2 g/dl (6.4-8.2) 04/06/17 11:00 Albumin 3.2 g/dl (3.4-5.0) L 04/06/17 11:00 CARDIAC ENZYMES Creatine Kinase 123 IU/L (39-308) 03/28/17 15:30 Current Medications Generic Name Dose Route Start Last Admin Trade Name Freq PRN Reason Stop Dose Admin Acetaminophen 650 mg 03/28/17 18:32 04/05/17 22:43 Tylenol - PO 650 mg Q4H PRN Administration FEVER OR PAIN Artificial Tears 1 drop 03/30/17 01:10 03/31/17 21:33 Artificial Tears OU 1 drop BID PRN Administration DRY EYES Cephalexin HCl 500 mg 04/07/17 13:00 04/08/17 10:13 Keflex - PO 500 mg BID KAYLA Administration Diphenhydramine HCl 50 mg 04/06/17 20:00 04/07/17 05:04 Benadryl - PO 50 mg Q8H PRN Administration itching/rash Doxycycline Hyclate 100 mg 04/07/17 12:30 04/08/17 10:13 Vibramycin - PO 100 mg BID@1000,1800 KAYLA Administration Heparin Sodium (Porcine) 5,000 unit 04/04/17 14:00 04/08/17 06:21 Heparin - SQ Not Given TID KAYLA Nystatin 1 applic 03/30/17 11:45 04/08/17 10:17 Mycostatin Ointment - TP Not Given BID [facility]: per resident's note ASSESSMENT AND PLAN: Patient is a 32 yo M with PMhx of Asthma, who presented with R leg pain and swelling after trauma. Now found to have diffuse rash likely drug rash from either clindamycin or augmentin. # Acute Right leg Cellulitis : improving patient developed severe drug rash due to clindamycin vs Augmentin which was discontinued, IV antibiotic was changed to oral Doxycyline and Keflex orally as per ID and due to patient having severe drug rash and unsure whether It was due to clindamycin or Augmentin so ID would like to monitor further for possible any further reaction.further ABx management by ID. # Escar of the wound, ortho following the wound and would like the patient follow up with them in the office upon discharge.tylenol prn for pain control. # hx of Asthma- controlled. no signs of exacerbation #DVT ppx- heparin sc for dvt ppx possible dc in am will check with ID
--- NOTE | 2017-04-08 14:30 | PN ---
Physical Exam: SUBJECTIVE: Patient seen and examined. Diffuse maculopapular rash still present , progressing through its course. Pt feels well and wants to go home. Pt able to walk without difficulty. No events overnight. OBJECTIVE: Vital Signs Period Temp Pulse Resp BP Sys/[place] Pulse Ox Last 24 Hr 97.8 F-98.3 F 66-76 18-20 119-131/62-74 100-100 GENERAL: The patient is awake, alert, and fully oriented, in no acute distress. HEAD: Normal with no signs of trauma. EYES: Extraocular movements intact, sclera anicteric, conjunctiva clear. No ptosis. ENT: Moist mucous membranes. NECK: Trachea midline, supple. LUNGS: Breath sounds equal, clear to auscultation bilaterally, no wheezes, no crackles, no accessory muscle use. HEART: Regular rate and rhythm, S1, S2 without murmur, rub or gallop. ABDOMEN: Soft, nontender, nondistended. EXTREMITIES: Right LE edema, warmth, erythema all reduced. Eschar to the wound noted. Wound minimally painful to palpation. No drainage/discharge. PSYCH: Normal mood, normal affect. SKIN: diffuse maculopapular rash covering torso and extremities Active Medications Generic Name Dose Route Start Last Admin Trade Name Freq PRN Reason Stop Dose Admin Acetaminophen 650 mg 03/28/17 18:32 04/05/17 22:43 Tylenol - PO 650 mg Q4H PRN Administration FEVER OR PAIN Artificial Tears 1 drop 03/30/17 01:10 03/31/17 21:33 Artificial Tears OU 1 drop BID PRN Administration DRY EYES Cephalexin HCl 500 mg 04/07/17 13:00 04/08/17 10:13 Keflex - PO 500 mg BID KAYLA Administration Diphenhydramine HCl 50 mg 04/06/17 20:00 04/07/17 05:04 Benadryl - PO 50 mg Q8H PRN Administration itching/rash Doxycycline Hyclate 100 mg 04/07/17 12:30 04/08/17 10:13 Vibramycin - PO 100 mg BID@1000,1800 KAYLA Administration Heparin Sodium (Porcine) 5,000 unit 04/04/17 14:00 04/08/17 13:19 Heparin - SQ Not Given TID KAYLA Nystatin 1 applic 03/30/17 11:45 04/08/17 10:17 Mycostatin Ointment - TP Not Given BID [facility] ASSESSMENT/PLAN: 32yo M with PMH of ezcema and asthma, presented with Right LE pain/swelling s/p trauma, now found to have diffuse rash likely 2/2 antibiotic reaction from Clindamycin or Augmentin. 1) acute Right LE cellulitis - improving. Drug rash. - ID for abx -> doxycycline 100 mg po BID and keflex 500mg po daily - Ortho following wound, applied siver nitrite - keep leg elevated - warm compresses - continue Tylenol prn for pain 2) asthma - inactive 3) FEN - Fluids: encourage po - Electrolytes: wnl, continue to monitor - Nutrition: regular diet 4) Prophylaxis - DVT ppx with Heparin 5,000U SQ TID - deconditioning ppx with PT Consult Visit type - Emergency Visit Emergency Visit: Yes ED Registration Date: 03/30/17 Care time: The patient presented to the Emergency Department on the above date and was hospitalized for further evaluation of their emergent condition. - New Patient This patient is new to me today: No - Critical Care Critical Care patient: No
--- NOTE | 2017-04-08 16:11 | PN ---
Progress Note, Physician History of Present Illness: Pt seen and examined. Now on oral antibiotics. Still with extensive generalized maculopapular rash noted on previous antibiotics. He is afebrile, denies pruritis and states he feels much better than when he first came in. Wishes to go home. - Current Medication List Current Medications: Active Medications Acetaminophen (Tylenol -) 650 mg PO Q4H PRN PRN Reason: FEVER OR PAIN Last Admin: 04/05/17 22:43 Dose: 650 mg Artificial Tears (Artificial Tears) 1 drop OU BID PRN PRN Reason: DRY EYES Last Admin: 03/31/17 21:33 Dose: 1 drop Cephalexin HCl (Keflex -) 500 mg PO BID [facility] Last Admin: 04/08/17 10:13 Dose: 500 mg Diphenhydramine HCl (Benadryl -) 50 mg PO Q8H PRN PRN Reason: itching/rash Last Admin: 04/07/17 05:04 Dose: 50 mg Doxycycline Hyclate (Vibramycin -) 100 mg PO BID@1000,1800 [facility] Last Admin: 04/08/17 10:13 Dose: 100 mg Heparin Sodium (Porcine) (Heparin -) 5,000 unit SQ TID [facility] Last Admin: 04/08/17 13:19 Dose: Not Given Nystatin (Mycostatin Ointment -) 1 applic TP BID [facility] Last Admin: 04/08/17 10:17 Dose: Not Given - Objective Vital Signs: Vital Signs Temperature 97.9 F 04/08/17 15:43 Pulse Rate 69 04/08/17 15:43 Respiratory Rate 18 04/08/17 15:43 Blood Pressure 131/76 04/08/17 15:43 O2 Sat by Pulse Oximetry (%) 100 04/08/17 09:00 Constitutional: Yes: No Distress Cardiovascular: Yes: Regular Rate and Rhythm Respiratory: Yes: CTA Bilaterally Gastrointestinal: Yes: Normal Bowel Sounds, Soft Integumentary: Yes: Erythema (LE erythema, decreased edema, eschar over area treated with silver nitrite), Rash (generalized rash) Neurological: Yes: Alert, Oriented Labs: CBC, BMP 04/06/17 11:00 04/06/17 11:00 Problem List - Problems (1) Cellulitis Code(s): L03.90 - CELLULITIS, UNSPECIFIED Assessment/Plan RLE cellulitis - improving Allergic drug reaction to either augmentin or clindamycin given previously - rash still extensive Currently on keflex and doxycycline At this time suggest continue monitoring for signs of improvement as d/w patient
[2017-04-08] MEDS: ACETAMINOPHEN 325 MG TABLET (FP) PO PRN (18:14)
[2017-04-09] MEDS: HEPARIN NA (PORCINE) 5,000 UNITS/ML 1ML VIAL SQ SCH (05:31)
[2017-04-09 07:08] LABS: BASOPHIL 0.5 % (0-2.0); EOSINOPHIL 3.3 % (0-4.5); MCH 28.7 pg (25.7-33.7); MCHC 34.9 g/dl (32.0-35.9); MEAN CELL VOLUME 82.3 fl (80-96); MEAN PLT VOLUME 8.3 fl (7.5-11.1); NEUTROPHILS 64.4 % (42.8-82.8); PLATELET COUNT 337 K/MM3 (134-434); RDW 13.2 % (11.9-15.9); WHITE BLOOD COUNT 9.7 K/mm3 (4.0-10.0)
[2017-04-09 07:18] LABS: ANION GAP 5 (8-16); CALCIUM 8.9 mg/dL (8.5-10.1); CO2 27 mmol/L (21-32); CREATININE 1.2 mg/dL (0.7-1.3); GLUCOSE,RANDOM 82 mg/dL (74-106)
[2017-04-09 09:12] VITALS: BP 135/74; PULSE 76; TEMP 97.6
[2017-04-09] MEDS: DOXYCYCLINE HYCLATE 100 MG CAPSULE PO SCH (10:04)
[2017-04-09] MEDS: NYSTATIN 100000 UNIT/GM TOPICAL OINTMENT 15 GM TUBE TP SCH (10:04)
[2017-04-09] MEDS: CEPHALEXIN MONOHYDRATE 500 MG CAPSULE (UD) PO SCH (10:04)
--- NOTE | 2017-04-09 10:04 | PN ---
Progress Note (short form) - Note Progress Note: Ortho Pt seen and examined. RIght LE cellulitis- much improved Selected Entries 04/09/17 09:10 Temperature 97.6 F Pulse Rate 76 Respiratory 20 Rate Blood Pressure 135/74 Laboratory Tests 04/09/17 06:10 WBC 9.7 D Hgb 14.4 Hct 41.2 Plt Count 337 + rash from drug reaction- resolving,+ pyogenic granuloma where blister was present looks much better s/p silver nitrate, no pus, decr erythema, decr swelling, decr ttp, incr rom, nvi a/p ABx as per ID wbat elevation d/c home today if ok with ID d/w Dr. Longoria
--- NOTE | 2017-04-09 10:28 | DS ---
Physical Exam: SUBJECTIVE: Patient seen and examined. Pt is able to ambulate without difficulty. Pt is feeling well and wants to go home. Pt denies fever, chills, nausea, vomiting, chest pain, palpitations, sob. Diffuse drug reaction rash persists and is progressing through its course. No events overnight. OBJECTIVE: Vital Signs Period Temp Pulse Resp BP Sys/[place] Pulse Ox Last 24 Hr 97.6 F-98.3 F 69-77 18-20 131-135/70-76 100 PHYSICAL EXAM GENERAL: The patient is awake, alert, and fully oriented, in no acute distress. HEAD: Normal with no signs of trauma. EYES: Extraocular movements intact, sclera anicteric, conjunctiva clear. ENT: Moist mucous membranes. NECK: Trachea midline, supple. LUNGS: Breath sounds equal, clear to auscultation bilaterally, no wheezes, no crackles, no accessory muscle use. HEART: Regular rate and rhythm, S1, S2 without murmur, rub or gallop. ABDOMEN: Soft, nontender, nondistended, no guarding, no rebound, no masses. EXTREMITIES: Right LE edema wound minimally painful to palpation. No drainage/ discharge. NEUROLOGICAL: Normal speech, normal gait. PSYCH: Normal mood, normal affect. SKIN: Diffuse maculopapular rash covering torso and extremities. LABS Laboratory Results - last 24 hr 04/09/17 04/09/17 06:10 06:10 WBC 9.7 D RBC 5.00 Hgb 14.4 Hct 41.2 MCV 82.3 MCH 28.7 MCHC 34.9 RDW 13.2 Plt Count 337 MPV 8.3 Neutrophils % 64.4 Lymphocytes % 25.3 D Monocytes % 6.5 Eosinophils % 3.3 Basophils % 0.5 Sodium 138 Potassium 4.4 Chloride 106 Carbon Dioxide 27 Anion Gap 5 L BUN 20 H Creatinine 1.2 Random Glucose 82 Calcium 8.9 HOSPITAL COURSE: Date of Admission:03/30/17 Date of Discharge: 04/09/17 32yo M with PMH of asthma and ezcema, presented with pain and swelling to Right LE s/p trauma, admitted for cellulitis. Pt received IV antibiotics: 8 days of IV Vancomycin and 7 days of IV Zosyn. Pt was converted to PO antibiotics, but had a reaction to either the Clindamycin or Augmentin. Diffuse rash over torso and extremities developed. Both Clindamycin and Aumentin were stopped immediately and pt given Benadryl. The following day the pt was placed on an antibiotic holiday. On 04/07/17, pt was started on Doxycycline and Keflex. Pt was monitored over the weekend for cross reaction to the cephalosporin. Pt tolerated the new antibiotic regimen and is stable to be discharged home on 5 more days of Keflex and Doxycycline. Minutes to complete discharge: 30 Discharge Summary Reason For Visit: CELLULITIS Current Active Problems Cellulitis (Acute) Condition: Improved - Instructions Diet, Activity, Other Instructions: You have been treated for cellulitis. Please continue taking your current antibiotics for 5 more days. Take your Keflex twice a day and take your Doxcycline twice a day. You can continue taking Tylenol for pain. You can continue eating a regular diet. You can increase your activity as tolerated. You will need to follow up with your Primary Care Doctor (Dr. Quiles) in [address] Quiles's office hours are on Wednesdays from 1-4:30pm. Please make an appointment to follow-up with the Infectious Disease Doctor (Dr. Barrios) in 1 week after coming home from the hospital. Please make an appointment to follow-up with the Orthopedist (Dr. Santiago) in 2 weeks. Please make an appointment to follow-up with the Registered Dietitian (Dr. Carter) in 2 weeks. If you experience persistent or increasing pain in the Right lower leg, or if the pain starts to spread up or down the leg, please return to the hospital immediately. Referrals: Chase Ding MD [Staff Physician] - 1 Week (Follow-up with Dr. Quiles on from 1-4:30pm.) Mario Barrios MD [Staff Physician] - 1 Week Kota Santiago MD [Staff Physician] - 2 Weeks Shankar Carter MD [Staff Physician] - 2 Weeks (Registered Dietitian) Disposition: HOME - Home Medications Comprehensive Discharge Medication List: Ambulatory Orders Cephalexin Monohydrate [Keflex -] 500 mg PO BID #10 cap 04/09/17 Diphenhydramine HCl [Benadryl Capsule -] 50 mg PO Q8H PRN #30 cap 04/09/17 Doxycycline Hyclate [Vibramycin -] 100 mg PO BID@1000,1800 #10 cap 04/09/17 This patient is new to me today: No Emergency Visit: Yes ED Registration Date: 03/30/17 Care time: The patient presented to the Emergency Department on the above date and was hospitalized for further evaluation of their emergent condition. Critical Care patient: No - Discharge Referral Referred to [facility] No
--- NOTE | 2017-04-09 12:58 | PN ---
Teaching Attending Note Name of Resident: Mary Daniel ATTENDING PHYSICIAN STATEMENT I saw and evaluated the patient. I reviewed the resident's note and discussed the case with the resident. I agree with the resident's findings and plan as documented. SUBJECTIVE: Patient is feeling better and would like to go home, as per ID patient can go home today. OBJECTIVE: Vital Signs Temperature 97.6 F 04/09/17 09:10 Pulse Rate 76 04/09/17 09:10 Respiratory Rate 20 04/09/17 09:10 Blood Pressure 135/74 04/09/17 09:10 O2 Sat by Pulse Oximetry (%) 100 04/08/17 20:48 CBCD WBC 9.7 K/mm3 (4.0-10.0) D 04/09/17 06:10 RBC 5.00 M/mm3 (4.00-5.60) 04/09/17 06:10 Hgb 14.4 GM/dL (11.7-16.9) 04/09/17 06:10 Hct 41.2 % (35.4-49) 04/09/17 06:10 MCV 82.3 fl (80-96) 04/09/17 06:10 MCHC 34.9 g/dl (32.0-35.9) 04/09/17 06:10 RDW 13.2 % (11.9-15.9) 04/09/17 06:10 Plt Count 337 K/MM3 (134-434) 04/09/17 06:10 MPV 8.3 fl (7.5-11.1) 04/09/17 06:10 CMP Sodium 138 mmol/L (136-145) 04/09/17 06:10 Potassium 4.4 mmol/L (3.5-5.1) 04/09/17 06:10 Chloride 106 mmol/L (98-107) 04/09/17 06:10 Carbon Dioxide 27 mmol/L (21-32) 04/09/17 06:10 Anion Gap 5 (8-16) L 04/09/17 06:10 BUN 20 mg/dL (7-18) H 04/09/17 06:10 Creatinine 1.2 mg/dL (0.7-1.3) 04/09/17 06:10 Creat Clearance w eGFR > 60 (>60) 04/06/17 11:00 Random Glucose 82 mg/dL (74-106) 04/09/17 06:10 Calcium 8.9 mg/dL (8.5-10.1) 04/09/17 06:10 Total Bilirubin 0.4 mg/dL (0.2-1.0) D 04/06/17 11:00 AST 15 U/L (15-37) 04/06/17 11:00 ALT 30 U/L (12-78) 04/06/17 11:00 Alkaline Phosphatase 64 U/L (45-117) 04/06/17 11:00 Total Protein 7.2 g/dl (6.4-8.2) 04/06/17 11:00 Albumin 3.2 g/dl (3.4-5.0) L 04/06/17 11:00 CARDIAC ENZYMES Creatine Kinase 123 IU/L (39-308) 03/28/17 15:30 Home Medications Medication Instructions Recorded Cephalexin Monohydrate [Keflex -] 500 mg PO BID #10 cap 04/09/17 Diphenhydramine HCl [Benadryl 50 mg PO Q8H PRN #30 cap 04/09/17 Capsule -] Doxycycline Hyclate [Vibramycin -] 100 mg PO BID@1000,1800 #10 cap 04/09/17 PE: per resident's note RLE: positive for Escar ASSESSMENT AND PLAN: Patient is a 32 yo M with PMhx of Asthma, who presented with R leg pain and swelling after trauma. Now found to have diffuse rash likely drug rash from either clindamycin or augmentin. # Acute Right leg Cellulitis : improving further , as per ID patient can go home today on Doxy and keflex, Further f/u as an outpatient While his stay in the hospital patient developed severe drug rash due to clindamycin vs Augmentin which was discontinued, IV antibiotic was changed to oral Doxycyline and Keflex orally as per ID. No further new drug reaction is noted. # Escar of the wound, ortho following the wound and would like the patient follow up with them in the office upon discharge.tylenol prn for pain control. # hx of Asthma- controlled. no signs of exacerbation #DVT ppx- heparin sc for dvt ppx discharge patient today, as per ID ok to discharge on Doxyxyline and keflex
[2017-04-10 10:12] LABS: HIV-RNA COPIES <20 copies/mL (.)
== END 2017-04-09 10:30 | disposition home or self-care (01) | DRG 383 ==
LOC: JER 13:43 → JERBED 17:47 → J6S 21:33 → OBSVTOIN 03-30 12:17
PROVIDERS: ADMIT Internal Medicine; ATTEND Internal Medicine
DX: L03.115 Cellulitis of right lower limb (principal); J45.909 Unspecified asthma, uncomplicated; L27.0 Generalized skin eruption due to drugs and medicaments taken internally; D72.829 Elevated white blood cell count, unspecified; K59.00 Constipation, unspecified; B35.3 Tinea pedis; F17.210 Nicotine dependence, cigarettes, uncomplicated
CPT/HCPCS: 36415; 73700-TC-RT; 80048; 80053; 81003; 81015; 82550; 83605; 85025; 85027; 85651; 86140; 87040; 87389; 93971-TC; 97116-GP; 97161-GP; 99285-25; G0378; G0480

== ENCOUNTER 2022-05-28 17:57 | Emergency (ER) | payer OTHER ==
[2022-05-28 18:18] VITALS: BP 156/103; PULSE 101; RESP 18; TEMP 98.4; BMI 34.5
[2022-05-28] MEDS ORDERED: SULFAMETHOXAZOLE/TRIMETHOPRIM 800MG/160MG D.S. TABLET PO ONE (19:43)
[2022-05-28] MEDS ORDERED: SULFAMETHOXAZOLE/TRIMETHOPRIM 800MG/160MG D.S. TABLET ONE (19:48)
== END 2022-05-28 19:59 | disposition home or self-care (01) ==
LOC: FER 17:57
DX: S01.511A Laceration without foreign body of lip, initial encounter (principal); Y04.2XXA Assault by strike against or bumped into by another person, initial encounter
CPT/HCPCS: 99283-25